=== PATIENT | female | born 1985 | race Caucasian/White ===

== ENCOUNTER 2018-07-07 13:49 | Inpatient (IN) | payer OTHER ==
[2018-07-07 15:31] VITALS: BMI 25.9
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
[2018-07-07] MEDS ORDERED: P-EPHED 60MG/TRIPROLIDI 2.5MG TABLET PO PRN (17:00)
[2018-07-07] MEDS ORDERED: MAGNESIUM CITRATE 300 ML BOTTLE PO PRN (17:00)
[2018-07-07] MEDS ORDERED: MENTHOL/PHENOL 1 EACH UD MM PRN (17:00)
[2018-07-07] MEDS ORDERED: MAGNESIUM HYDROX 2400MG/30ML ORAL SUSPENSION 30 ML CUP PO PRN (17:00)
[2018-07-07] MEDS ORDERED: NICOTINE POLACRILEX 2 MG GUM BC PRN (17:00)
[2018-07-07] MEDS ORDERED: LOPERAMIDE HCL 2 MG CAPSULE PO PRN (17:00)
[2018-07-07] MEDS ORDERED: guaiFENesin/D-METHORPHAN HB 10 ML UNIT-DOSE CUPS PO PRN (17:00)
[2018-07-07] MEDS ORDERED: ACETAMINOPHEN 325 MG TABLET (FP) PO PRN (17:00)
[2018-07-07] MEDS ORDERED: IBUPROFEN 400 MG TABLET (FP) PO PRN (17:00)
[2018-07-07] MEDS ORDERED: MAG HYDROX/AL HYDROX/SIMETH 30 ML UNIT-DOSE CUP PO PRN (17:00)
[2018-07-07] MEDS ORDERED: diazePAM 5 MG TABLET PO ONE (18:30)
[2018-07-07] MEDS ORDERED: METHADONE HCL 10 MG TABLET (FOR DETOX USE ONLY) PO ONE ×2 (18:30→23:00)
[2018-07-07] MEDS ORDERED: BACITRACIN 15 GM TUBE TOPICAL OINTMENT TP SCH (22:00)
[2018-07-07] MEDS ORDERED: MELATONIN 5 MG TABLETS PO PRN (22:00)
[2018-07-07] MEDS: diazePAM 5 MG TABLET PO SCH (22:49)
[2018-07-07] MEDS: cloNIDine HCL 0.1 MG TABLET PO SCH (22:49)
[2018-07-07] MEDS: GABAPENTIN 100 MG CAPSULE (FP) PO SCH (22:49)
[2018-07-07] MEDS: CYCLOBENZAPRINE HCL 10 MG TABLET (FP) PO PRN (22:52)
[2018-07-07] MEDS: THIAMINE HCL 100 MG TABLET (FP) PO SCH (22:52)
[2018-07-07] MEDS: ONDANSETRON *ODT* 4 MG TABLET SL PRN (22:59)
[2018-07-08] MEDS: BACITRACIN 0.9 GM PACKET TP SCH ×3 (00:08→22:24)
[2018-07-08] MEDS: diazePAM 5 MG TABLET PO SCH ×3 (05:25→22:25)
[2018-07-08] MEDS: GABAPENTIN 100 MG CAPSULE (FP) PO SCH ×3 (05:25→22:25)
[2018-07-08] MEDS: CYCLOBENZAPRINE HCL 10 MG TABLET (FP) PO PRN ×2 (05:26→22:27)
[2018-07-08] MEDS: ONDANSETRON *ODT* 4 MG TABLET SL PRN (05:26)
[2018-07-08] MEDS ORDERED: METHADONE HCL 10 MG TABLET (FOR DETOX USE ONLY) PO SCH (10:00)
[2018-07-08] MEDS: PRENATAL VITAMINS W/ FOLIC ACID TABLET (FP) PO SCH (10:33)
[2018-07-08] MEDS: diazePAM 5 MG TABLET PO PRN (10:33)
[2018-07-08] MEDS: cloNIDine HCL 0.1 MG TABLET PO SCH ×2 (10:33→22:25)
[2018-07-08] MEDS: NICOTINE 14 MG/24 HOURS TOPICAL PATCH TD SCH (10:33)
[2018-07-08 11:14] LABS: HEMATOCRIT 37.2 % (32.4-45.2); HEMOGLOBIN 12.2 GM/dL (10.7-15.3); MCH 24.9 pg (25.7-33.7); MCHC 32.9 g/dl (32.0-36.0); MEAN CELL VOLUME 75.7 fl (80-96); MEAN PLT VOLUME 8.4 fl (7.5-11.1); PLATELET COUNT 293 K/MM3 (134-434); RBC 4.92 M/mm3 (3.60-5.2); RDW 14.4 % (11.6-15.6)
[2018-07-08 12:31] LABS: ALBUMIN 3.5 g/dl (3.4-5.0); ALK PHOS 77 U/L (45-117); ANION GAP 9 MMOL/L (8-16); BILIRUBIN,TOTAL 0.3 mg/dL (0.2-1); BLOOD UREA NITROGEN 4 mg/dL (7-18); CALCIUM 9.1 mg/dL (8.5-10.1); CHLORIDE 100 mmol/L (98-107); CO2 29 mmol/L (21-32); CREATININE 0.7 mg/dL (0.55-1.3); GLUCOSE,RANDOM 100 mg/dL (74-106); POTASSIUM 3.3 mmol/L (3.5-5.1); SGOT/AST 22 U/L (15-37); SGPT/ALT 17 U/L (13-61); SODIUM 138 mmol/L (136-145); TOT PROT 8.3 g/dl (6.4-8.2)
--- NOTE | 2018-07-08 12:42 | EKG ---
Test Reason : Blood Pressure : / mmHG Vent. Rate : 070 BPM Atrial Rate : 070 BPM P-R Int : 190 ms QRS Dur : 082 ms QT Int : 390 ms P-R-T Axes : 029 062 032 degrees QTc Int : 421 ms NORMAL SINUS RHYTHM NORMAL ECG NO PREVIOUS ECGS AVAILABLE Confirmed by BRIGITTE MARSHALL, DAREK ([id number]) on 07/08/2018 12:42:46 PM Referred By: Confirmed By:DAREK BRIGGS MD
--- NOTE | 2018-07-08 13:18 | CONSULT ---
[facility] Psychiatric Consult - Data Date of interview: 07/08/18 Admission source: [facility] Identifying data: First admission to [facility] for this 32 y/o female self-referred for detoxification (opioid, xanax, cocaine, alcohol). Examined on . Patient is single, no children, unemployed and supported by friends/ relatives. Substance Abuse History: Confirmed by patient in this session. Details in current [facility] report as follows : Smoking history: Current every day smoker. Have you smoked in the past 12 months: Yes. Aproximately how many cigarettes per day: 3. Hx Chewing Tobacco Use: No. Initiated information on smoking cessation: Yes. 'Breaking Loose' booklet given: 07/07/18. - Substance & Tx. History. Hx Alcohol Use: Yes. Hx Substance Use: Yes. Substance Use Type: Alcohol, Cocaine, Heroin, Tranquilizers. Hx Substance Use Treatment: Yes (Last detox [facility] four weeks ago.). - Substances Abused. Alcohol. Route: Oral. Frequency: 3-6 times per week. Amount used: 1/2 liquor. Age of first use: 15. Date of Last Use: 07/05/18. Crack. Route: Smoking. Frequency: Daily. Amount used: 5 bags. Age of first use: 32. Date of Last Use: 07/07/18. Heroin. Route: Injection. Frequency: Daily. Amount used: 2 bundles. Age of first use: 28. Date of Last Use: 07/06/18. Alprazolam (Xanax). Route: Oral. Frequency: Daily. Amount used: 4 mg. Age of first use: 22. Date of Last Use: 07/07/18 Medical History: Hypothyroidism, herniated discs and bronchial asthma. Psychiatric History: Patient admits to a history of " a couple of " psychiatric hospitalizations at unnamed facilities in [facility]. Reportedly diagnosed with MDD, Bipolar Disorder, Anxiety Disorder and Borderline Personality Disorder. Ms Quach indicates that she used to be prescribed gabapentin, seroquel, buspar and clonidine. No OPD care. " I have not seen a psychiatrist since age 28 ". Has not taken psychotropic medications for past six months. Patient reports a history of three suicide attempts (wrist-cutting x 2 and one overdose with pills). Last attempt occurred four years ago. Physical/Sexual Abuse/Trauma History: Patient denies. Additional Comment: Urine Drug Screen Results: CARLITO-Cocaine, BZO-Benzodiazepines , MTD-Methadone, FEN-Fentanyl. Noted. Mental Status Exam - Mental Status Exam Alert and Oriented to: Time, Place, Person Cognitive Function: Good Patient Appearance: Well Groomed Mood: Nervous, Withdrawn, Anxious Affect: Mood Congruent, Constricted Patient Behavior: Fatigued, Appropriate, Cooperative Speech Pattern: Clear, Appropriate Voice Loudness: Normal Thought Process: Intact, Goal Oriented Thought Disorder: Not Present Hallucinations: Denies Suicidal Ideation: Denies Homicidal Ideation: Denies Insight/Judgement: Poor Sleep: Poorly, Difficulty falling asleep Appetite: Good Muscle strength/Tone: Normal Gait/Station: Normal Psychiatric Findings - Problem List ([place] 1, 2,3) (1) Alcohol dependence with withdrawal Current Visit: Yes Status: Acute Qualifiers: Complication of substance-induced condition: uncomplicated Qualified Code(s ): F10.230 - Alcohol dependence with withdrawal, uncomplicated (2) Sedative, hypnotic or anxiolytic dependence with withdrawal, uncomplicated Current Visit: Yes Status: Acute (3) Opioid dependence with withdrawal Current Visit: Yes Status: Acute (4) Cocaine dependence Current Visit: Yes Status: Chronic (5) Substance induced mood disorder Current Visit: Yes Status: Chronic (6) Insomnia Current Visit: Yes Status: Chronic (7) Non-compliance Current Visit: Yes Status: Acute - Initial Treatment Plan Initial Treatment Plan: Interviewed in the presence of medical students (with patient's verbal consent). Psychoeducation. Sleep hygiene. Detoxification. Motivational support. AA/NA meetings. Relapse prevention discussed with the patient. Ms Quach wants to resume seroquel to address insomnia. Seroquel 100 mg po hs. " It worked well for me in the past ". Side effects/benefits discussed. Consent (verbal) granted to MD. Parker.
--- NOTE | 2018-07-08 18:21 | PN ---
S CIWA - CIWA Score Nausea/Vomitin Muscle Tremors: 3 Anxiety: 5 Agitation: 0-Normal Activity Paroxysmal Sweats: 3 Orientation: 0-Oriented Tacttile Disturbances: 2-Mild Itch/Numbness/Burn Auditory Disturbances: 0-None Visual Disturbances: 1-Very Mild Sensitivity Headache: 3-Moderate CIWA-Ar Total Score: 20 BHS COWS - Scale Resting Pulse: 1= [place] 81-100 Sweatin= Chills/Flushing Restless Observation: 0= Sits Still Pupil Size: 0= Normal to Room Light Bone or Joint Aches: 2= Severe Diffuse Aches Runny Nose/ Eye Tearin= None GI Upset > 30mins: 2= Nausea/Diarrhea Tremor Observation of Outstretched Hands: 2= Slight Tremor Visible Yawning Observation: 1= 1-2x During Session Anxiety or Irritability: 4=Extreme Anxiety Goose Flesh Skin: 0=Smooth Skin COWS Score: 13 BHS Progress Note (SOAP) Subjective: Nausea, Stomach Cramping, Tremors, H/A, Sweating, Body Aches. Objective: PATIENT A & O X 3, OBSERVED AMBULATING ON UNIT. IN NO ACUTE DISTRESS. 07/08/18 18:19 Vital Signs Temperature 99.3 F 07/08/18 17:51 Pulse Rate 80 07/08/18 17:51 Respiratory Rate 18 07/08/18 17:51 Blood Pressure 106/70 07/08/18 17:51 O2 Sat by Pulse Oximetry (%) Laboratory Tests 07/08/18 07/08/18 07/08/18 07:00 07:00 07:00 WBC 6.0 RBC 4.92 Hgb 12.2 Hct 37.2 MCV 75.7 L MCH 24.9 L MCHC 32.9 RDW 14.4 Plt Count 293 MPV 8.4 Sodium 138 Potassium 3.3 L Chloride 100 Carbon Dioxide 29 Anion Gap 9 BUN 4 L Creatinine 0.7 Creat Clearance w eGFR > 60 Random Glucose 100 Calcium 9.1 Total Bilirubin 0.3 AST 22 ALT 17 Alkaline Phosphatase 77 Total Protein 8.3 H Albumin 3.5 RPR Titer Nonreactive LABS NOTED. Assessment: 07/08/18 18:20 WITHDRAWAL SYMPTOMS. Plan: CONTINUED ETOX. INCREASE DAILY PO FLUID INTAKE. K-DUR, 40 MEQ POP X 1 NOW, THEN 20 MEQ PO BID STARTING TOMORROW.
[2018-07-08] MEDS ORDERED: POTASSIUM CHLORIDE TABS 20 MEQ TABLET.ER (FP) PO ONE (19:00)
[2018-07-08 19:09] LABS: URINE APPEARANCE TURBID; URINE BILIRUBIN NEGATIVE (<2.0 mg/dL); URINE COLOR AMBER; URINE GLUCOSE (UA) NEGATIVE (NEGATIVE); URINE KETONE NEGATIVE (NEGATIVE); URINE LEUK ESTERASE 2+ (NEGATIVE); URINE NITRITE NEGATIVE (NEGATIVE); URINE PROTEIN 3+ (NEGATIVE)
[2018-07-08 19:15] LABS: EPI CELLS RARE /HPF (FEW); URINE BACTERIA RARE /hpf (NONE SEEN); URINE MUCUS MANY
[2018-07-08] MEDS: THIAMINE HCL 100 MG TABLET (FP) PO SCH (22:24)
[2018-07-08] MEDS: QUEtiapine FUMARATE 50 MG TABLET PO SCH (22:25)
[2018-07-09] MEDS: GABAPENTIN 100 MG CAPSULE (FP) PO SCH ×3 (06:59→21:15)
[2018-07-09] MEDS: diazePAM 5 MG TABLET PO PRN ×3 (08:54→21:15)
[2018-07-09] MEDS: METHADONE HCL 5 MG TABLET (FOR DETOX USE ONLY) PO SCH (10:31)
[2018-07-09] MEDS: NICOTINE 14 MG/24 HOURS TOPICAL PATCH TD SCH (10:32)
[2018-07-09] MEDS: PRENATAL VITAMINS W/ FOLIC ACID TABLET (FP) PO SCH (10:32)
[2018-07-09] MEDS: diazePAM 5 MG TABLET PO SCH ×2 (10:32→22:26)
[2018-07-09] MEDS: BACITRACIN 0.9 GM PACKET TP SCH ×2 (10:32→21:15)
[2018-07-09] MEDS: POTASSIUM CHLORIDE TABS 20 MEQ TABLET.ER (FP) PO SCH ×2 (10:32→17:24)
[2018-07-09] MEDS: cloNIDine HCL 0.1 MG TABLET PO SCH ×2 (11:14→22:25)
--- NOTE | 2018-07-09 16:07 | PN ---
S CIWA - CIWA Score Nausea/Vomitin Muscle Tremors: 3 Anxiety: 5 Agitation: 3 Paroxysmal Sweats: 3 Orientation: 0-Oriented Tacttile Disturbances: 0-None Auditory Disturbances: 0-None Visual Disturbances: 0-None Headache: 2-Mild CIWA-Ar Total Score: 18 BHS COWS - Scale Resting Pulse: 2= [place] 101-120 Sweatin= Chills/Flushing Restless Observation: 1= Difficult to Sit Still Pupil Size: 0= Normal to Room Light Bone or Joint Aches: 2= Severe Diffuse Aches Runny Nose/ Eye Tearin= None GI Upset > 30mins: 2= Nausea/Diarrhea Tremor Observation of Outstretched Hands: 2= Slight Tremor Visible Yawning Observation: 1= 1-2x During Session Anxiety or Irritability: 2=Irritable/Anxious Goose Flesh Skin: 0=Smooth Skin COWS Score: 13 S Progress Note (SOAP) Subjective: Nausea, H/A, Stomach Cramping, Tremors, Sweating, Body Aches. Objective: PATIENT A & O X 3, OBSERVED AMBULATING ON UNIT. IN NO ACUTE DISTRESS. 07/09/18 16:03 Vital Signs Temperature 96.1 F L 07/09/18 14:53 Pulse Rate 59 L 07/09/18 14:53 Respiratory Rate 18 07/09/18 14:53 Blood Pressure 97/65 07/09/18 14:53 O2 Sat by Pulse Oximetry (%) Laboratory Tests 07/08/18 07/08/18 07/08/18 00:01 07:00 07:00 WBC 6.0 RBC 4.92 Hgb 12.2 Hct 37.2 MCV 75.7 L MCH 24.9 L MCHC 32.9 RDW 14.4 Plt Count 293 MPV 8.4 Sodium 138 Potassium 3.3 L Chloride 100 Carbon Dioxide 29 Anion Gap 9 BUN 4 L Creatinine 0.7 Creat Clearance w eGFR > 60 Random Glucose 100 Calcium 9.1 Total Bilirubin 0.3 AST 22 ALT 17 Alkaline Phosphatase 77 Total Protein 8.3 H Albumin 3.5 Urine Color Alejandra Urine Appearance Turbid Urine pH 5.0 Ur Specific [place] 1.024 Urine Protein 3+ H Urine Glucose (UA) Negative Urine Ketones Negative Urine Blood 1+ H Urine Nitrite Negative Urine Bilirubin Negative Urine Urobilinogen 2.0 H Ur Leukocyte Esterase 2+ H Urine WBC (Auto) 757 Urine RBC (Auto) 15 Ur Epithelial Cells Rare Urine Bacteria Rare Urine Mucus Many RPR Titer 07/08/18 07:00 WBC RBC Hgb Hct MCV MCH MCHC RDW Plt Count MPV Sodium Potassium Chloride Carbon Dioxide Anion Gap BUN Creatinine Creat Clearance w eGFR Random Glucose Calcium Total Bilirubin AST ALT Alkaline Phosphatase Total Protein Albumin Urine Color Urine Appearance Urine pH Ur Specific [place] Urine Protein Urine Glucose (UA) Urine Ketones Urine Blood Urine Nitrite Urine Bilirubin Urine Urobilinogen Ur Leukocyte Esterase Urine WBC (Auto) Urine RBC (Auto) Ur Epithelial Cells Urine Bacteria Urine Mucus RPR Titer Nonreactive LABS NOTED. PATIENT DENIES ANY UNUSUAL URINARY COMPLAINTS (BURNING, PAIN, FREQUENCY, URGENCY , HESITANCY). HOWEVER, PATIENT REPORTS HISTORY OF UTI'S. 07/09/18 16:04 Assessment: 07/09/18 16:05 WITHDRAWAL SYMPTOMS. HYPOKALEMIA. 07/09/18 16:06 Plan: CONTINUE DETOX. INCREASE DAILY PO FLUID INTAKE. REPEAT UA FOR ADMISSION UA ABNORMALITIES. CONTINUE K-DUR. PRN FLEXERIL PO FOR BODY ACHES. CLONIDINE, 0.1 MG PO BID (PREVIOUSLY ORDERED) FOR WITHDRAWAL SYMPTOMS.
[2018-07-09] MEDS: CYCLOBENZAPRINE HCL 10 MG TABLET (FP) PO PRN (17:33)
[2018-07-09 20:09] LABS: URINE APPEARANCE TURBID; URINE BILIRUBIN NEGATIVE (<2.0 mg/dL); URINE COLOR AMBER; URINE GLUCOSE (UA) NEGATIVE (NEGATIVE); URINE KETONE NEGATIVE (NEGATIVE); URINE LEUK ESTERASE 2+ (NEGATIVE); URINE NITRITE NEGATIVE (NEGATIVE); URINE PROTEIN 2+ (NEGATIVE); URINE UROBILINOGEN NEGATIVE mg/dL (0.2-1.0)
[2018-07-09 20:18] LABS: EPI CELLS RARE /HPF (FEW); URINE MUCUS FEW
[2018-07-09] MEDS: THIAMINE HCL 100 MG TABLET (FP) PO SCH (21:15)
[2018-07-09] MEDS: QUEtiapine FUMARATE 50 MG TABLET PO SCH (21:15)
[2018-07-10] MEDS: CYCLOBENZAPRINE HCL 10 MG TABLET (FP) PO PRN (01:20)
[2018-07-10] MEDS: diazePAM 5 MG TABLET PO PRN ×4 (01:21→17:10)
[2018-07-10] MEDS: GABAPENTIN 100 MG CAPSULE (FP) PO SCH (05:51)
--- NOTE | 2018-07-10 09:36 | PN ---
Psychiatric Progress Note Vital Signs: Vital Signs Period Temp Pulse Resp BP Sys/[place] Pulse Ox Last 24 Hr 96.1 F-97.3 F 59-104 16-18 96-104/65-73 Date of Session: 07/10/18 Chief Complaint:: "I have anxiety and I can't sleep" HPI: Patient admitted to for detoxification from opioid, xanax, cocaine, and alcohol dependence. ROS: Hypothyroidism, herniated discs and bronchial asthma Current Medications: Active Medications Generic Name Dose Route Start Last Admin Trade Name Freq PRN Reason Stop Dose Admin Acetaminophen 650 mg 07/07/18 17:00 Tylenol - PO Q4H PRN FEVER Al Hydroxide/Mg Hydroxide 30 ml 07/07/18 17:00 Mylanta Oral Suspension - PO Q6H PRN DYSPEPSIA Bacitracin 0.9 gm 07/07/18 23:00 07/09/18 21:15 Bacitracin - TP 0.9 gm BID JANINE Administration Clonidine 0.1 mg 07/07/18 22:00 07/09/18 22:25 Catapres - PO Not Given BID JANINE Cyclobenzaprine HCl 10 mg 07/07/18 17:14 07/10/18 01:20 Flexeril - PO 10 mg TID PRN Administration MUSCLE SPASMS Diazepam 5 mg 07/09/18 10:00 07/09/18 22:26 Valium - PO 07/10/18 22:01 Not Given BID JANINE Diazepam 5 mg 07/11/18 10:00 Valium - PO 07/11/18 10:01 DAILY JANINE Diazepam 10 mg 07/07/18 17:00 07/10/18 05:54 Valium - PO 07/10/18 17:12 10 mg Q4H PRN Administration WITHDRAWAL(CONT SUBST) Eucalyptus/Menthol/Phenol/Sorbitol 1 each 07/07/18 17:00 Cepastat Lozenge - MM Q4H PRN SORE THROAT Gabapentin 100 mg 07/07/18 22:00 07/10/18 05:51 Neurontin - PO 100 mg TID JANINE Administration Guaifenesin 10 ml 07/07/18 17:00 Robitussin Dm - PO Q6H PRN COUGH Ibuprofen 400 mg 07/07/18 17:00 Motrin - PO Q6H PRN PAIN LEVEL 4-6 Loperamide HCl 4 mg 07/07/18 17:00 Imodium - PO Q6H PRN DIARRHEA Magnesium Citrate 300 ml 07/07/18 17:00 Citroma - PO Q48H PRN CONSTIPATION Magnesium Hydroxide 30 ml 07/07/18 17:00 Milk Of Magnesia - PO DAILY PRN CONSTIPATION Melatonin 5 mg 07/07/18 22:00 Melatonin PO HS PRN INSOMNIA Methadone HCl 10 mg 07/11/18 10:00 Dolophine - PO 07/11/18 10:01 DAILY JANINE Methadone HCl 15 mg 07/09/18 10:00 07/09/18 10:31 Dolophine - PO 07/10/18 10:01 15 mg DAILY JANINE Administration Methadone HCl 5 mg 07/12/18 06:00 Dolophine - PO 07/12/18 06:01 DAILY@0600 JANINE Nicotine 14 mg 07/08/18 10:00 07/09/18 10:32 Nicoderm Patch - TD 14 mg DAILY JANINE Administration Nicotine Polacrilex 2 mg 07/07/18 17:00 Nicorette Gum - BC Q2H PRN NICOTINE REPLACEMENT RX Potassium Chloride 20 meq 07/09/18 10:00 07/09/18 17:24 K-Dur - PO 20 meq BID@1000,1800 JANINE Administration Multivit/Folic Acid/Iron 1 tab 07/08/18 10:00 07/09/18 10:32 Vitamins (Sjr) - PO 1 tab DAILY JANINE Administration Pseudoephedrine/Triprolidine 1 combo 07/07/18 17:00 Actifed - PO TID PRN NASAL CONGESTION Quetiapine Fumarate 50 mg 07/08/18 22:00 07/09/18 21:15 Seroquel - PO 50 mg HS JANINE Administration Thiamine HCl 100 mg 07/07/18 22:00 07/09/18 21:15 Vitamin B1 - PO 100 mg HS JANINE Administration Medication(s) Change(s): Yes. Will increase seroquel 50mg to 100mg HS + Increase Gabapentin 100mg TID to 300 TID. Current Side Effect: No Lab tests ordered: No Lab tests reviewed: Yes Provider note:: Patient complaining of worsening anxiety and insomnia. Dr. Pozo note read and appreciated.States she used to be prescribed gabapentin 600mg TID but is currently receiving gabapentin 100mg TID which she states is not effective. Patient denies current outpatient psychiatric care. States it has been some time since she last took gabapentin 600mg TID. Patient also c/o insomnia. Patient accepted seroquel 50mg last night with unfavorable effects. Will increase seroquel 50mg dose to 100mg and gabapentin to be increased to 300mg TID. Psychoeducation and sleep hygiene provided. Verbal consent given. Total face to face time:: 25 Mental Status Exam - Mental Status Exam Alert and Oriented to: Time, Place, Person Cognitive Function: Good Patient Appearance: Well Groomed Mood: Anxious Affect: Mood Congruent Patient Behavior: Cooperative Speech Pattern: Appropriate Voice Loudness: Normal Thought Process: Intact, Goal Oriented Thought Disorder: Not Present Hallucinations: Denies Suicidal Ideation: Denies Homicidal Ideation: Denies Insight/Judgement: Poor Sleep: Poorly Appetite: Fair Muscle strength/Tone: Normal Gait/Station: Normal Psychiatric Treatment Plan - Problem List (1) Alcohol dependence with withdrawal Qualifiers: Comment: . (2) Substance-induced sleep disorder Comment: . (3) Opioid dependence with withdrawal Comment: . (4) Sedative, hypnotic or anxiolytic dependence with withdrawal, uncomplicated Comment: . (6) Substance induced mood disorder Comment: .
[2018-07-10] MEDS ORDERED: BACLOFEN 10 MG TABLET (FP) PO ONE (09:50)
--- NOTE | 2018-07-10 09:50 | PN ---
[facility] CIWA - CIWA Score Nausea/Vomitin-Mild Nausea/No Vomiting Muscle Tremors: 4-Moderate,w/Arms Extend Anxiety: 3 Agitation: 4-Moderately Restless Paroxysmal Sweats: 1-Minimal Palms Moist Orientation: 0-Oriented Tacttile Disturbances: 0-None Auditory Disturbances: 0-None Visual Disturbances: 0-None Headache: 1-Very Mild CIWA-Ar Total Score: 14 BHS COWS - Scale Resting Pulse: 0= [place] 80 or Below Sweatin= Chills/Flushing Restless Observation: 0= Sits Still Pupil Size: 0= Normal to Room Light Bone or Joint Aches: 1= Mild Discomfort Runny Nose/ Eye Tearin= Nasal Congestion GI Upset > 30mins: 2= Nausea/Diarrhea Tremor Observation of Outstretched Hands: 2= Slight Tremor Visible Yawning Observation: 1= 1-2x During Session Anxiety or Irritability: 2=Irritable/Anxious Goose Flesh Skin: 0=Smooth Skin COWS Score: 10 S Progress Note (SOAP) Subjective: body aches muscle cramping stiff joints tremor sweating Objective: 07/10/18 09:51 Vital Signs Temperature 95.9 F L 07/10/18 09:50 Pulse Rate 64 07/10/18 09:50 Respiratory Rate 18 07/10/18 09:50 Blood Pressure 104/71 07/10/18 09:50 O2 Sat by Pulse Oximetry (%) Laboratory Last Values WBC 6.0 K/mm3 (4.0-10.0) 07/08/18 07:00 RBC 4.92 M/mm3 (3.60-5.2) 07/08/18 07:00 Hgb 12.2 GM/dL (10.7-15.3) 07/08/18 07:00 Hct 37.2 % (32.4-45.2) 07/08/18 07:00 MCV 75.7 fl (80-96) L 07/08/18 07:00 MCH 24.9 pg (25.7-33.7) L 07/08/18 07:00 MCHC 32.9 g/dl (32.0-36.0) 07/08/18 07:00 RDW 14.4 % (11.6-15.6) 07/08/18 07:00 Plt Count 293 K/MM3 (134-434) 07/08/18 07:00 MPV 8.4 fl (7.5-11.1) 07/08/18 07:00 Sodium 138 mmol/L (136-145) 07/08/18 07:00 Potassium 3.3 mmol/L (3.5-5.1) L 07/08/18 07:00 Chloride 100 mmol/L (98-107) 07/08/18 07:00 Carbon Dioxide 29 mmol/L (21-32) 07/08/18 07:00 Anion Gap 9 MMOL/L (8-16) 07/08/18 07:00 BUN 4 mg/dL (7-18) L 07/08/18 07:00 Creatinine 0.7 mg/dL (0.55-1.3) 07/08/18 07:00 Creat Clearance w eGFR > 60 (>60) 07/08/18 07:00 Random Glucose 100 mg/dL (74-106) 07/08/18 07:00 Calcium 9.1 mg/dL (8.5-10.1) 07/08/18 07:00 Total Bilirubin 0.3 mg/dL (0.2-1) 07/08/18 07:00 AST 22 U/L (15-37) 07/08/18 07:00 ALT 17 U/L (13-61) 07/08/18 07:00 Alkaline Phosphatase 77 U/L (45-117) 07/08/18 07:00 Total Protein 8.3 g/dl (6.4-8.2) H 07/08/18 07:00 Albumin 3.5 g/dl (3.4-5.0) 07/08/18 07:00 Urine Color Alejandra 07/09/18 11:40 Urine Appearance Turbid 07/09/18 11:40 Urine pH 7.0 (5.0-8.0) D 07/09/18 11:40 Ur Specific [place] 1.006 (1.010-1.035) L 07/09/18 11:40 Urine Protein 2+ (NEGATIVE) H 07/09/18 11:40 Urine Glucose (UA) Negative (NEGATIVE) 07/09/18 11:40 Urine Ketones Negative (NEGATIVE) 07/09/18 11:40 Urine Blood 1+ (NEGATIVE) H 07/09/18 11:40 Urine Nitrite Negative (NEGATIVE) 07/09/18 11:40 Urine Bilirubin Negative (<2.0 mg/dL) 07/09/18 11:40 Urine Urobilinogen Negative mg/dL (0.2-1.0) 07/09/18 11:40 Ur Leukocyte Esterase 2+ (NEGATIVE) H 07/09/18 11:40 Urine WBC (Auto) 170 /hpf (3-5) 07/09/18 11:40 Urine RBC (Auto) 22 /hpf (0-3) 07/09/18 11:40 Ur Epithelial Cells Rare /HPF (FEW) 07/09/18 11:40 Urine Bacteria Rare /hpf (NONE SEEN) 07/08/18 00:01 Urine Mucus Few 07/09/18 11:40 RPR Titer Nonreactive (NONREACTIVE) 07/08/18 07:00 lab noted uti low K+ Assessment: 07/10/18 09:54 withdrawal sx uti hypokalemia Plan: continue detox bactrim ds bid continue potassium supplement K+ repeat
[2018-07-10] MEDS: BACITRACIN 0.9 GM PACKET TP SCH ×2 (10:22→22:29)
[2018-07-10] MEDS: PRENATAL VITAMINS W/ FOLIC ACID TABLET (FP) PO SCH (10:22)
[2018-07-10] MEDS: METHADONE HCL 5 MG TABLET (FOR DETOX USE ONLY) PO SCH (10:23)
[2018-07-10] MEDS: diazePAM 5 MG TABLET PO SCH ×2 (10:23→22:30)
[2018-07-10] MEDS: cloNIDine HCL 0.1 MG TABLET PO SCH ×2 (10:24→22:32)
[2018-07-10] MEDS: POTASSIUM CHLORIDE TABS 20 MEQ TABLET.ER (FP) PO SCH ×2 (10:25→17:24)
[2018-07-10] MEDS: NICOTINE 14 MG/24 HOURS TOPICAL PATCH TD SCH (10:25)
[2018-07-10] MEDS: SULFAMETHOXAZOLE/TRIMETHOPRIM 800MG/160MG D.S. TABLET PO SCH ×2 (11:25→22:30)
[2018-07-10] MEDS: GABAPENTIN 300 MG CAPSULE (FP) PO SCH ×2 (13:11→22:30)
[2018-07-10] MEDS: QUEtiapine FUMARATE 100 MG TABLET (FP) PO SCH (22:30)
[2018-07-10] MEDS: THIAMINE HCL 100 MG TABLET (FP) PO SCH (22:30)
[2018-07-11] MEDS: GABAPENTIN 300 MG CAPSULE (FP) PO SCH ×3 (05:49→22:19)
[2018-07-11] MEDS ORDERED: METHADONE HCL 10 MG TABLET (FOR DETOX USE ONLY) PO SCH (10:00)
[2018-07-11] MEDS ORDERED: diazePAM 5 MG TABLET PO SCH (10:00)
[2018-07-11] MEDS: PRENATAL VITAMINS W/ FOLIC ACID TABLET (FP) PO SCH (10:19)
[2018-07-11] MEDS: cloNIDine HCL 0.1 MG TABLET PO SCH ×2 (10:19→22:20)
[2018-07-11] MEDS: POTASSIUM CHLORIDE TABS 20 MEQ TABLET.ER (FP) PO SCH ×2 (10:19→17:19)
[2018-07-11] MEDS: BACITRACIN 0.9 GM PACKET TP SCH ×2 (10:19→22:18)
[2018-07-11] MEDS: SULFAMETHOXAZOLE/TRIMETHOPRIM 800MG/160MG D.S. TABLET PO SCH ×2 (10:19→22:19)
[2018-07-11] MEDS: NICOTINE 14 MG/24 HOURS TOPICAL PATCH TD SCH (10:20)
--- NOTE | 2018-07-11 10:58 | PN ---
S CIWA - CIWA Score Nausea/Vomitin-No Nausea/No Vomiting Muscle Tremors: 2 Anxiety: 2 Agitation: 1-Slight > Activity Paroxysmal Sweats: 1-Minimal Palms Moist Orientation: 0-Oriented Tacttile Disturbances: 0-None Auditory Disturbances: 0-None Visual Disturbances: 0-None Headache: 0-None Present CIWA-Ar Total Score: 6 BHS COWS - Scale Resting Pulse: 0= [place] 80 or Below Sweatin= Chills/Flushing Restless Observation: 0= Sits Still Pupil Size: 0= Normal to Room Light Bone or Joint Aches: 1= Mild Discomfort Runny Nose/ Eye Tearin= None GI Upset > 30mins: 0= None Tremor Observation of Outstretched Hands: 1= Tremor [place], Not Seen Yawning Observation: 0= None Anxiety or Irritability: 1=Feels Anxious/Irritable Goose Flesh Skin: 0=Smooth Skin COWS Score: 4 S Progress Note (SOAP) Subjective: neck muscle stiffness from IV heroin right neck report baclofen works for her feeling better mild tremor less body aches Objective: 07/11/18 10:58 Vital Signs Temperature 98.1 F 07/11/18 09:17 Pulse Rate 97 H 07/11/18 09:17 Respiratory Rate 18 07/11/18 09:17 Blood Pressure 107/76 07/11/18 09:17 O2 Sat by Pulse Oximetry (%) Laboratory Last Values WBC 6.0 K/mm3 (4.0-10.0) 07/08/18 07:00 RBC 4.92 M/mm3 (3.60-5.2) 07/08/18 07:00 Hgb 12.2 GM/dL (10.7-15.3) 07/08/18 07:00 Hct 37.2 % (32.4-45.2) 07/08/18 07:00 MCV 75.7 fl (80-96) L 07/08/18 07:00 MCH 24.9 pg (25.7-33.7) L 07/08/18 07:00 MCHC 32.9 g/dl (32.0-36.0) 07/08/18 07:00 RDW 14.4 % (11.6-15.6) 07/08/18 07:00 Plt Count 293 K/MM3 (134-434) 07/08/18 07:00 MPV 8.4 fl (7.5-11.1) 07/08/18 07:00 Sodium 138 mmol/L (136-145) 07/08/18 07:00 Potassium 3.3 mmol/L (3.5-5.1) L 07/08/18 07:00 Chloride 100 mmol/L (98-107) 07/08/18 07:00 Carbon Dioxide 29 mmol/L (21-32) 07/08/18 07:00 Anion Gap 9 MMOL/L (8-16) 07/08/18 07:00 BUN 4 mg/dL (7-18) L 07/08/18 07:00 Creatinine 0.7 mg/dL (0.55-1.3) 07/08/18 07:00 Creat Clearance w eGFR > 60 (>60) 07/08/18 07:00 Random Glucose 100 mg/dL (74-106) 07/08/18 07:00 Calcium 9.1 mg/dL (8.5-10.1) 07/08/18 07:00 Total Bilirubin 0.3 mg/dL (0.2-1) 07/08/18 07:00 AST 22 U/L (15-37) 07/08/18 07:00 ALT 17 U/L (13-61) 07/08/18 07:00 Alkaline Phosphatase 77 U/L (45-117) 07/08/18 07:00 Total Protein 8.3 g/dl (6.4-8.2) H 07/08/18 07:00 Albumin 3.5 g/dl (3.4-5.0) 07/08/18 07:00 Urine Color Alejandra 07/09/18 11:40 Urine Appearance Turbid 07/09/18 11:40 Urine pH 7.0 (5.0-8.0) D 07/09/18 11:40 Ur Specific [place] 1.006 (1.010-1.035) L 07/09/18 11:40 Urine Protein 2+ (NEGATIVE) H 07/09/18 11:40 Urine Glucose (UA) Negative (NEGATIVE) 07/09/18 11:40 Urine Ketones Negative (NEGATIVE) 07/09/18 11:40 Urine Blood 1+ (NEGATIVE) H 07/09/18 11:40 Urine Nitrite Negative (NEGATIVE) 07/09/18 11:40 Urine Bilirubin Negative (<2.0 mg/dL) 07/09/18 11:40 Urine Urobilinogen Negative mg/dL (0.2-1.0) 07/09/18 11:40 Ur Leukocyte Esterase 2+ (NEGATIVE) H 07/09/18 11:40 Urine WBC (Auto) 170 /hpf (3-5) 07/09/18 11:40 Urine RBC (Auto) 22 /hpf (0-3) 07/09/18 11:40 Ur Epithelial Cells Rare /HPF (FEW) 07/09/18 11:40 Urine Bacteria Rare /hpf (NONE SEEN) 07/08/18 00:01 Urine Mucus Few 07/09/18 11:40 RPR Titer Nonreactive (NONREACTIVE) 07/08/18 07:00 lab noted low K+ uti encourage the patient to cloth picker her uti and K+ supplement from preferred pharmacy as well as narcan kit 07/11/18 11:06 Assessment: 07/11/18 11:07 mild withdrawal sx Plan: continue detox
[2018-07-11] MEDS ORDERED: BACLOFEN 10 MG TABLET (FP) PO ONE ×2 (11:15→22:00)
[2018-07-11] MEDS ORDERED: hydrOXYzine PAMOATE 50 MG CAPSULE (FP) PO PRN (18:51)
[2018-07-11] MEDS: THIAMINE HCL 100 MG TABLET (FP) PO SCH (22:19)
[2018-07-11] MEDS: QUEtiapine FUMARATE 100 MG TABLET (FP) PO SCH (22:19)
[2018-07-12] MEDS: GABAPENTIN 300 MG CAPSULE (FP) PO SCH (05:48)
[2018-07-12] MEDS ORDERED: METHADONE HCL 5 MG TABLET (FOR DETOX USE ONLY) PO SCH (06:00)
[2018-07-12] MEDS ORDERED: BACLOFEN 10 MG TABLET (FP) PO ONE ×2 (09:00→10:00)
[2018-07-12] MEDS: cloNIDine HCL 0.1 MG TABLET PO SCH (09:36)
[2018-07-12] MEDS: BACITRACIN 0.9 GM PACKET TP SCH (09:36)
[2018-07-12] MEDS: PRENATAL VITAMINS W/ FOLIC ACID TABLET (FP) PO SCH (09:36)
[2018-07-12] MEDS: SULFAMETHOXAZOLE/TRIMETHOPRIM 800MG/160MG D.S. TABLET PO SCH (09:36)
[2018-07-12] MEDS: POTASSIUM CHLORIDE TABS 20 MEQ TABLET.ER (FP) PO SCH (09:36)
[2018-07-12] MEDS: NICOTINE 14 MG/24 HOURS TOPICAL PATCH TD SCH (09:36)
[2018-07-12 11:16] LABS: POTASSIUM 4.3 mmol/L (3.5-5.1)
[2018-07-12 13:32] VITALS: BP 89/56; PULSE 81; TEMP 97.5
--- NOTE | 2018-07-12 14:31 | DS ---
[facility] Detox Discharge Summary Admission Date: 07/07/18 Discharge Date: 07/12/18 - History Present History: Alcohol Dependence, Opioid Dependence, Sedative Dependence Additional Comments: 32 years old female admitted on 07/07/18 for alcohol benzo and opiate withdrawal stabilization [facility] Physical Exam Results Vital Signs: Vital Signs Temperature 97.5 F L 07/12/18 13:31 Pulse Rate 81 07/12/18 13:31 Respiratory Rate 18 07/12/18 13:31 Blood Pressure 89/56 L 07/12/18 13:31 O2 Sat by Pulse Oximetry (%) Pertinent Admission Physical Exam Findings: alcohol benzo opioid withdrawal sx Laboratory Last Values WBC 6.0 K/mm3 (4.0-10.0) 07/08/18 07:00 RBC 4.92 M/mm3 (3.60-5.2) 07/08/18 07:00 Hgb 12.2 GM/dL (10.7-15.3) 07/08/18 07:00 Hct 37.2 % (32.4-45.2) 07/08/18 07:00 MCV 75.7 fl (80-96) L 07/08/18 07:00 MCH 24.9 pg (25.7-33.7) L 07/08/18 07:00 MCHC 32.9 g/dl (32.0-36.0) 07/08/18 07:00 RDW 14.4 % (11.6-15.6) 07/08/18 07:00 Plt Count 293 K/MM3 (134-434) 07/08/18 07:00 MPV 8.4 fl (7.5-11.1) 07/08/18 07:00 Sodium 138 mmol/L (136-145) 07/08/18 07:00 Potassium 4.3 mmol/L (3.5-5.1) 07/12/18 08:15 Chloride 100 mmol/L (98-107) 07/08/18 07:00 Carbon Dioxide 29 mmol/L (21-32) 07/08/18 07:00 Anion Gap 9 MMOL/L (8-16) 07/08/18 07:00 BUN 4 mg/dL (7-18) L 07/08/18 07:00 Creatinine 0.7 mg/dL (0.55-1.3) 07/08/18 07:00 Creat Clearance w eGFR > 60 (>60) 07/08/18 07:00 Random Glucose 100 mg/dL (74-106) 07/08/18 07:00 Calcium 9.1 mg/dL (8.5-10.1) 07/08/18 07:00 Total Bilirubin 0.3 mg/dL (0.2-1) 07/08/18 07:00 AST 22 U/L (15-37) 07/08/18 07:00 ALT 17 U/L (13-61) 07/08/18 07:00 Alkaline Phosphatase 77 U/L (45-117) 07/08/18 07:00 Total Protein 8.3 g/dl (6.4-8.2) H 07/08/18 07:00 Albumin 3.5 g/dl (3.4-5.0) 07/08/18 07:00 Urine Color Alejandra 07/09/18 11:40 Urine Appearance Turbid 07/09/18 11:40 Urine pH 7.0 (5.0-8.0) D 07/09/18 11:40 Ur Specific [place] 1.006 (1.010-1.035) L 07/09/18 11:40 Urine Protein 2+ (NEGATIVE) H 07/09/18 11:40 Urine Glucose (UA) Negative (NEGATIVE) 07/09/18 11:40 Urine Ketones Negative (NEGATIVE) 07/09/18 11:40 Urine Blood 1+ (NEGATIVE) H 07/09/18 11:40 Urine Nitrite Negative (NEGATIVE) 07/09/18 11:40 Urine Bilirubin Negative (<2.0 mg/dL) 07/09/18 11:40 Urine Urobilinogen Negative mg/dL (0.2-1.0) 07/09/18 11:40 Ur Leukocyte Esterase 2+ (NEGATIVE) H 07/09/18 11:40 Urine WBC (Auto) 170 /hpf (3-5) 07/09/18 11:40 Urine RBC (Auto) 22 /hpf (0-3) 07/09/18 11:40 Ur Epithelial Cells Rare /HPF (FEW) 07/09/18 11:40 Urine Bacteria Rare /hpf (NONE SEEN) 07/08/18 00:01 Urine Mucus Few 07/09/18 11:40 RPR Titer Nonreactive (NONREACTIVE) 07/08/18 07:00 lab noted - Treatment Hospital Course: Detox Protocol Followed, Detoxed Safely, Responded well, Discharged Condition Good, Rehab Referral Accepted Patient has Accepted a Rehab Referral to: [facility] - Medication Discharge Medications: Ambulatory Orders Naloxone HCl [Narcan] 4 mg NS ASDIR PRN #1 spray 07/11/18 Potassium Chloride [K-Dur -] 20 meq PO BID@1000,1800 #10 tablet.er 07/11/18 Sulfamethoxazole/Trimethoprim [Bactrim DS -] 1 each PO BID #7 tablet 07/11/18 - Diagnosis (1) Alcohol dependence with withdrawal Status: Acute Qualifiers: Complication of substance-induced condition: uncomplicated Qualified Code(s ): F10.230 - Alcohol dependence with withdrawal, uncomplicated (2) Opioid dependence with withdrawal Status: Acute (3) Sedative, hypnotic or anxiolytic dependence with withdrawal, uncomplicated Status: Acute (4) Asthma Status: Chronic Qualifiers: Asthma severity: mild Asthma persistence: intermittent Asthma complication type: uncomplicated Qualified Code(s): J45.20 - Mild intermittent asthma, uncomplicated (5) Substance induced mood disorder Status: Suspected - AMA Did Patient Leave Against Medical Advice: No
== END 2018-07-12 13:45 | disposition other institution (70) | DRG 773 ==
LOC: YASAS 13:49 → Y3N 18:13
PROVIDERS: ADMIT Surgery; ATTEND Surgery
PROC: HZ2ZZZZ Detoxification Services for Substance Abuse Treatment (ICD-10-PCS; principal; 2018-07-07)
DX: F11.23 Opioid dependence with withdrawal (principal); F13.230 Sedative, hypnotic or anxiolytic dependence with withdrawal, uncomplicated; F10.230 Alcohol dependence with withdrawal, uncomplicated; F14.20 Cocaine dependence, uncomplicated; F19.282 Other psychoactive substance dependence with psychoactive substance-induced sleep disorder; F19.24 Other psychoactive substance dependence with psychoactive substance-induced mood disorder; F31.9 Bipolar disorder, unspecified; G47.00 Insomnia, unspecified; J45.20 Mild intermittent asthma, uncomplicated; E87.6 Hypokalemia; M54.5 Low back pain; Z87.442 Personal history of urinary calculi; Z91.5 Personal history of self-harm; Z91.19 Patient's noncompliance with other medical treatment and regimen
CPT/HCPCS: 36415; 80053; 81003; 81015; 84132; 84439; 84443; 84479; 85027; 86593; 93005; 93010; J0475; J0735; Q0162

== ENCOUNTER 2018-07-12 13:28 | Inpatient (IN) | payer OTHER ==
[2018-07-12] MEDS ORDERED: NICOTINE 14 MG/24 HOURS TOPICAL PATCH TD PRN (14:32)
[2018-07-12] MEDS ORDERED: MENTHOL/PHENOL 1 EACH UD MM PRN (14:32)
[2018-07-12] MEDS ORDERED: P-EPHED 60MG/TRIPROLIDI 2.5MG TABLET PO PRN (14:32)
[2018-07-12] MEDS ORDERED: NICOTINE POLACRILEX 2 MG GUM BUC PRN (14:32)
[2018-07-12] MEDS ORDERED: guaiFENesin/D-METHORPHAN HB 10 ML UNIT-DOSE CUPS PO PRN (14:32)
[2018-07-12] MEDS ORDERED: LOPERAMIDE HCL 2 MG CAPSULE PO PRN (14:32)
[2018-07-12] MEDS ORDERED: IBUPROFEN 400 MG TABLET (FP) PO PRN (14:32)
[2018-07-12] MEDS ORDERED: MAGNESIUM CITRATE 300 ML BOTTLE PO PRN (14:32)
[2018-07-12] MEDS ORDERED: MAG HYDROX/AL HYDROX/SIMETH 30 ML UNIT-DOSE CUP PO PRN (14:32)
--- NOTE | 2018-07-12 14:32 | HP ---
[facility] Rehab Assess/Revision - Admission History Admitted to Rehab from: [facility] Date of Admission to Rehab: 07/12/18 - Vital signs Vital Signs: Vital Signs Period Temp Pulse Resp BP Sys/[place] Pulse Ox Last 24 Hr 98.6 F 80 17 100/68 - Findings Detox History & Physical reviewed: Yes Concur with findings: Yes Comments/Additional Findings: trasnferred from detox to rehab admission as per protocol Inpatient Rehab Admission - Rehab Decision to Admit Inpatient rehab admission?: Yes - Initial Determination Are CD services needed?: Yes Free of communicable disease: Yes Not in need of hospitalization: Yes - Rehab Admission Criteria Previous failed treatment: Yes Poor recovery environment: Yes Comorbidities: Yes Lacks judgement: No Patient is meeting Inpatient Rehab admission criteria:: Yes
--- NOTE | 2018-07-12 15:15 | PN ---
[facility] Progress Note Note: Called by nursing staff to continue Seroquel 100 mg po HS ordered by Dr Pozo who saw patient on 06/17/18 while in detox. Seroquel 100 mg po HS ordered
--- NOTE | 2018-07-12 15:53 | PN ---
S Progress Note Note: Nurse states that client reports patient is taking levothyroxine, but has not taken her medication for >1 month. TSH, T4, [id number] ordered.
[2018-07-12] MEDS: hydrOXYzine PAMOATE 50 MG CAPSULE (FP) PO PRN (17:39)
[2018-07-12] MEDS ORDERED: BACLOFEN 10 MG TABLET (FP) PO ONE (22:00)
[2018-07-12] MEDS ORDERED: MELATONIN 5 MG TABLETS PO PRN (22:00)
[2018-07-12] MEDS ORDERED: QUEtiapine FUMARATE 100 MG TABLET (FP) PO SCH ×2 (22:00)
[2018-07-12] MEDS: THIAMINE HCL 100 MG TABLET (FP) PO SCH (23:05)
[2018-07-12] MEDS: GABAPENTIN 300 MG CAPSULE (FP) PO SCH (23:05)
[2018-07-12] MEDS: SULFAMETHOXAZOLE/TRIMETHOPRIM 800MG/160MG D.S. TABLET PO SCH (23:05)
[2018-07-13] MEDS: GABAPENTIN 300 MG CAPSULE (FP) PO SCH (06:22)
[2018-07-13] MEDS: PRENATAL VITAMINS W/ FOLIC ACID TABLET (FP) PO SCH (09:51)
[2018-07-13] MEDS: SULFAMETHOXAZOLE/TRIMETHOPRIM 800MG/160MG D.S. TABLET PO SCH ×2 (09:51→21:53)
[2018-07-13] MEDS ORDERED: CYCLOBENZAPRINE HCL 10 MG TABLET (FP) PO PRN (10:58)
[2018-07-13] MEDS ORDERED: cloNIDine HCL 0.1 MG TABLET PO PRN (10:59)
--- NOTE | 2018-07-13 11:04 | PN ---
S Progress Note Note: NURSE CALLED TO REPORT PT C/O WITHDRAWAL SX-HOT/COLD FLASHES,ANXIETY,BODY ACHES , SWEATS. PT COMPLETED DETOX FOR HEROIN AND BENZO ON 07/12/18 AND REFERRED TO REHAB SAME DAY. Vital Signs - 24 hr 07/12/18 07/13/18 07/13/18 14:11 00:30 03:30 Temperature 98.6 F Pulse Rate 80 Respiratory 17 18 18 Rate Blood Pressure 100/68 07/13/18 07/13/18 07:04 09:22 Temperature 97.2 F L 98.2 F Pulse Rate 67 93 H Respiratory 18 17 Rate Blood Pressure 104/70 116/78 PLAN:CLONIDINE 0.1 MG PO BID PRN FLEXERIL 10 MG PO TID PRN INCREASE PO FLUIDS
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
[2018-07-13] MEDS ORDERED: GABAPENTIN 300 MG CAPSULE (FP) PO SCH (12:04)
[2018-07-13] MEDS ORDERED: COLLOIDAL OATMEAL 1 BAR EACH TP PRN (12:47)
[2018-07-13] MEDS ORDERED: GABAPENTIN 100 MG CAPSULE (FP) ONE ×2 (13:46→19:49)
[2018-07-13] MEDS: GABAPENTIN 400 MG, GABAPENTIN 100 MG PO SCH ×2 (13:46→21:52)
[2018-07-13] MEDS ORDERED: GABAPENTIN 400 MG CAPSULE (FP) ONE ×2 (13:46→19:49)
[2018-07-13] MEDS: DULoxetine HCL 20 MG CAPSULE.DR (FP) PO SCH (13:46)
[2018-07-13] MEDS: LIDOCAINE 5% TOPICAL PATCH TP SCH (13:47)
[2018-07-13] MEDS ORDERED: BACLOFEN 10 MG TABLET (FP) PO SCH (14:00)
[2018-07-13] MEDS: BACLOFEN 10 MG TABLET (FP) PO PRN ×2 (14:09→21:52)
[2018-07-13] MEDS ORDERED: LEVOTHYROXINE NA 175 MCG TABLET PO SCH (14:15)
[2018-07-13] MEDS ORDERED: LEVOTHYROXINE 100 MCG, LEVOTHYROXINE 75 MCG PO ONE (14:30)
[2018-07-13] MEDS ORDERED: LEVOTHYROXINE NA 25 MCG TABLET (FP) ONE (15:10)
[2018-07-13] MEDS ORDERED: LEVOTHYROXINE NA 100 MCG TABLET (FP) ONE (15:10)
[2018-07-13] MEDS: ACETAMINOPHEN 325 MG TABLET (FP) PO PRN (17:51)
[2018-07-13] MEDS: MAGNESIUM HYDROX 2400MG/30ML ORAL SUSPENSION 30 ML CUP PO PRN (17:52)
[2018-07-13] MEDS: THIAMINE HCL 100 MG TABLET (FP) PO SCH (21:53)
[2018-07-13] MEDS: NAPROXEN 500 MG TABLET (FP) PO SCH (21:53)
[2018-07-13] MEDS: LIDOCAINE PATCH REMOVAL MC SCH (21:54)
[2018-07-13] MEDS: QUEtiapine FUMARATE 50 MG TABLET PO SCH (21:55)
[2018-07-13] MEDS: SUVOREXANT 10 MG TABLET PO PRN (21:58)
[2018-07-13] MEDS: hydrOXYzine PAMOATE 50 MG CAPSULE (FP) PO PRN (22:41)
[2018-07-14] MEDS ORDERED: GABAPENTIN 400 MG CAPSULE (FP) ONE ×2 (03:12→13:06)
[2018-07-14] MEDS ORDERED: GABAPENTIN 100 MG CAPSULE (FP) ONE ×2 (03:13→13:06)
[2018-07-14] MEDS ORDERED: LEVOTHYROXINE NA 100 MCG TABLET (FP) ONE (06:07)
[2018-07-14] MEDS ORDERED: LEVOTHYROXINE NA 25 MCG TABLET (FP) ONE (06:07)
[2018-07-14] MEDS: LEVOTHYROXINE 100 MCG, LEVOTHYROXINE 75 MCG PO SCH (06:54)
[2018-07-14] MEDS: GABAPENTIN 400 MG, GABAPENTIN 100 MG PO SCH ×2 (06:54→14:08)
[2018-07-14] MEDS: NAPROXEN 500 MG TABLET (FP) PO SCH ×2 (09:00→21:56)
[2018-07-14] MEDS: PRENATAL VITAMINS W/ FOLIC ACID TABLET (FP) PO SCH (09:00)
[2018-07-14] MEDS: SULFAMETHOXAZOLE/TRIMETHOPRIM 800MG/160MG D.S. TABLET PO SCH ×2 (09:00→21:56)
[2018-07-14] MEDS: LIDOCAINE 5% TOPICAL PATCH TP SCH (09:01)
[2018-07-14] MEDS: DULoxetine HCL 20 MG CAPSULE.DR (FP) PO SCH (09:01)
[2018-07-14] MEDS: hydrOXYzine PAMOATE 50 MG CAPSULE (FP) PO PRN (09:09)
[2018-07-14] MEDS ORDERED: NICOTINE POLACRILEX 2 MG GUM BUC PRN (11:58)
[2018-07-14] MEDS ORDERED: NICOTINE 14 MG/24 HOURS TOPICAL PATCH TD PRN (13:15)
[2018-07-14] MEDS: BACLOFEN 10 MG TABLET (FP) PO PRN (13:17)
[2018-07-14] MEDS: cloNIDine HCL 0.1 MG TABLET PO PRN (13:17)
--- NOTE | 2018-07-14 15:01 | PN ---
Psychiatric Progress Note Vital Signs: Vital Signs Period Temp Pulse Resp BP Sys/[place] Pulse Ox Last 24 Hr 97.3 F 81-100 16-18 92-120/60-72 Date of Session: 07/14/18 Chief Complaint:: "I feel very anxious" HPI: Patient is a 32 years old female with history of alcohol, cocaine and benzodiazepine use admitted from detox on 07/12/18 ROS: Asthma, Hypothyroidism, Back pain Current Medications: Active Medications Generic Name Dose Route Start Last Admin Trade Name Freq PRN Reason Stop Dose Admin Acetaminophen 650 mg 07/12/18 14:32 07/13/18 17:51 Tylenol - PO 650 mg Q4H PRN Administration FEVER Al Hydroxide/Mg Hydroxide 30 ml 07/12/18 14:32 Mylanta Oral Suspension - PO Q6H PRN DYSPEPSIA Baclofen 10 mg 07/13/18 12:22 07/14/18 13:17 Lioresal - PO 10 mg TID PRN Administration MUSCLE SPASMS Clonidine 0.1 mg 07/14/18 13:11 07/14/18 13:17 Catapres - PO 0.1 mg BID PRN Administration WITHDRAWAL(CONT SUBST) Duloxetine HCl 20 mg 07/13/18 12:15 07/14/18 09:01 Cymbalta - PO 20 mg DAILY JANINE Administration Eucalyptus/Menthol/Phenol/Sorbitol 1 each 07/12/18 14:32 Cepastat Lozenge - MM Q4H PRN SORE THROAT Gabapentin 800 mg 07/14/18 22:00 Neurontin - PO TID JANINE Guaifenesin 10 ml 07/12/18 14:32 Robitussin Dm - PO Q6H PRN COUGH Hydroxyzine Pamoate 50 mg 07/12/18 17:07 07/14/18 09:09 Vistaril - PO 50 mg Q6H PRN Administration AGITATION Levothyroxine Sodium 100 mcg/ 175 mcg 07/14/18 07:00 07/14/18 06:54 Levothyroxine Sodium 75 mcg PO 175 mcg DAILY@0700 JANINE Administration Lidocaine 1 patch 07/13/18 13:45 07/14/18 09:01 Lidoderm Patch - TP 1 patch DAILY JANINE Administration Loperamide HCl 4 mg 07/12/18 14:32 Imodium - PO Q6H PRN DIARRHEA Magnesium Citrate 300 ml 07/12/18 14:32 07/14/18 08:57 Citroma - PO 300 ml Q48H PRN Administration CONSTIPATION Magnesium Hydroxide 30 ml 07/12/18 14:32 07/13/18 17:52 Milk Of Magnesia - PO 30 ml DAILY PRN Administration CONSTIPATION Melatonin 5 mg 07/12/18 22:00 Melatonin PO HS PRN INSOMNIA Miscellaneous 1 each 07/13/18 22:00 07/13/18 21:54 Lidoderm Patch Removal MC 1 each DAILY@2200 JANINE Administration Naproxen 500 mg 07/13/18 22:00 07/14/18 09:00 Naprosyn - PO 07/20/18 21:59 500 mg BID JANINE Administration Nicotine 21 mg 07/14/18 14:00 Nicoderm Patch - TD DAILY JANINE Nicotine Polacrilex 4 mg 07/14/18 11:58 07/14/18 13:08 Nicorette Gum - BUC 4 mg Q2H PRN Administration NICOTINE REPLACEMENT RX Multivit/Folic Acid/Iron 1 tab 07/13/18 10:00 07/14/18 09:00 Vitamins (Sjr) - PO 1 tab DAILY JANINE Administration Pseudoephedrine/Triprolidine 1 combo 07/12/18 14:32 Actifed - PO TID PRN NASAL CONGESTION Quetiapine Fumarate 150 mg 07/13/18 22:00 07/13/18 21:55 Seroquel - PO 150 mg HS JANINE Administration Sodium Phosphate 133 ml 07/15/18 10:00 Fleet Adult Rectal Enema - FL 07/15/18 10:01 ONCE ONE Suvorexant 10 mg 07/13/18 12:02 07/13/18 21:58 Belsomra PO 10 mg HS PRN Administration INSOMNIA Thiamine HCl 100 mg 07/12/18 22:00 07/13/18 21:53 Vitamin B1 - PO 100 mg HS JANINE Administration Trimethoprim/Sulfamethoxazole 1 each 07/12/18 22:00 07/14/18 09:00 Bactrim Ds - PO 07/19/18 21:59 1 each BID JANINE Administration Current Side Effect: No Lab tests ordered: Yes Lab tests reviewed: Yes Provider note:: Patient reports feeling very anxious and requests adjustment in her med regimen. She is currently on Gabapentin 500 mg po TID, Seroquel 150 mg po HS and Vistaril 50 mg Q 4hrs prn. 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 Claims Vistaril does not help her. Discussed with patient about increasing Gabapentin dosage to 800 mg po TID and Vistaril 50 mg po Q 4hrs prn Total face to face time:: 15 Mental Status Exam - Mental Status Exam Alert and Oriented to: Time, Place, Person Cognitive Function: Fair Patient Appearance: Well Groomed Mood: Anxious Affect: Appropriate Patient Behavior: Cooperative Speech Pattern: Clear Voice Loudness: Normal Thought Process: Intact Thought Disorder: Not Present Hallucinations: Denies Suicidal Ideation: Denies Homicidal Ideation: Denies Insight/Judgement: Fair Sleep: Fair Appetite: Good Muscle strength/Tone: Normal Gait/Station: Normal Psychiatric Treatment Plan - Problem List (1) Substance induced mood disorder Current Visit: Yes (2) Substance-induced sleep disorder Current Visit: Yes (3) Alcohol dependence Current Visit: Yes (4) Cocaine dependence Current Visit: Yes (5) Sedative hypnotic or anxiolytic dependence Current Visit: Yes (6) Nicotine dependence Current Visit: Yes (7) Back pain Current Visit: Yes (8) Hypothyroid Current Visit: Yes Qualifiers: (9) Asthma Current Visit: Yes Qualifiers: Initial treatment plan: 1) Discontinue Gabapentin 500 mg po TID. 2) Start Gabapentin 800 mg po TID. 3) Continue inpatient rehabilitation
[2018-07-14] MEDS: NICOTINE 21 MG/24 HOURS TOPICAL PATCH TD SCH (15:10)
[2018-07-14] MEDS: QUEtiapine FUMARATE 50 MG TABLET PO SCH (21:56)
[2018-07-14] MEDS: THIAMINE HCL 100 MG TABLET (FP) PO SCH (21:56)
[2018-07-14] MEDS: LIDOCAINE PATCH REMOVAL MC SCH (21:56)
[2018-07-14] MEDS: GABAPENTIN 400 MG CAPSULE (FP) PO SCH (21:57)
[2018-07-14] MEDS: SUVOREXANT 10 MG TABLET PO PRN (21:59)
[2018-07-15] MEDS ORDERED: LEVOTHYROXINE NA 100 MCG TABLET (FP) ONE (06:07)
[2018-07-15] MEDS ORDERED: LEVOTHYROXINE NA 25 MCG TABLET (FP) ONE (06:07)
[2018-07-15] MEDS: GABAPENTIN 400 MG CAPSULE (FP) PO SCH ×3 (06:39→21:54)
[2018-07-15] MEDS: LEVOTHYROXINE 100 MCG, LEVOTHYROXINE 75 MCG PO SCH (06:39)
[2018-07-15] MEDS ORDERED: SODIUM PHOSPHATE/NA BIPHOS 133 ML ENEMA PR ONE (10:00)
[2018-07-15] MEDS: NICOTINE 21 MG/24 HOURS TOPICAL PATCH TD SCH (10:25)
[2018-07-15] MEDS: NAPROXEN 500 MG TABLET (FP) PO SCH ×2 (10:25→21:54)
[2018-07-15] MEDS: LIDOCAINE 5% TOPICAL PATCH TP SCH (10:25)
[2018-07-15] MEDS: PRENATAL VITAMINS W/ FOLIC ACID TABLET (FP) PO SCH (10:25)
[2018-07-15] MEDS: SULFAMETHOXAZOLE/TRIMETHOPRIM 800MG/160MG D.S. TABLET PO SCH ×2 (10:26→21:54)
[2018-07-15] MEDS: DULoxetine HCL 20 MG CAPSULE.DR (FP) PO SCH (10:26)
--- NOTE | 2018-07-15 10:29 | PN ---
S Progress Note Note: PT C/O CONSTIPATION NOT RELIEVED WITH MOM OR CITRATE OF MG X 2-3 DAYS. DENIES N/ V. Vital Signs - 24 hr 07/15/18 07/15/18 07/15/18 00:30 03:30 07:28 Temperature 97.6 F Pulse Rate 70 Respiratory 17 18 18 Rate Blood Pressure 95/62 Active Medications Generic Name Dose Route Start Last Admin Trade Name Freq PRN Reason Stop Dose Admin Acetaminophen 650 mg 07/12/18 14:32 07/13/18 17:51 Tylenol - PO 650 mg Q4H PRN Administration FEVER Al Hydroxide/Mg Hydroxide 30 ml 07/12/18 14:32 Mylanta Oral Suspension - PO Q6H PRN DYSPEPSIA Baclofen 10 mg 07/13/18 12:22 07/14/18 13:17 Lioresal - PO 10 mg TID PRN Administration MUSCLE SPASMS Clonidine 0.1 mg 07/14/18 13:11 07/14/18 13:17 Catapres - PO 0.1 mg BID PRN Administration WITHDRAWAL(CONT SUBST) Duloxetine HCl 20 mg 07/13/18 12:15 07/14/18 09:01 Cymbalta - PO 20 mg DAILY JANINE Administration Eucalyptus/Menthol/Phenol/Sorbitol 1 each 07/12/18 14:32 Cepastat Lozenge - MM Q4H PRN SORE THROAT Gabapentin 800 mg 07/14/18 22:00 07/15/18 06:39 Neurontin - PO 800 mg TID JANINE Administration Guaifenesin 10 ml 07/12/18 14:32 Robitussin Dm - PO Q6H PRN COUGH Hydroxyzine Pamoate 50 mg 07/12/18 17:07 07/14/18 09:09 Vistaril - PO 50 mg Q6H PRN Administration AGITATION Levothyroxine Sodium 100 mcg/ 175 mcg 07/14/18 07:00 07/15/18 06:39 Levothyroxine Sodium 75 mcg PO 175 mcg DAILY@0700 JANINE Administration Lidocaine 1 patch 07/13/18 13:45 07/14/18 09:01 Lidoderm Patch - TP 1 patch DAILY JANINE Administration Loperamide HCl 4 mg 07/12/18 14:32 Imodium - PO Q6H PRN DIARRHEA Magnesium Citrate 300 ml 07/12/18 14:32 07/14/18 08:57 Citroma - PO 300 ml Q48H PRN Administration CONSTIPATION Magnesium Hydroxide 30 ml 07/12/18 14:32 07/13/18 17:52 Milk Of Magnesia - PO 30 ml DAILY PRN Administration CONSTIPATION Melatonin 5 mg 07/12/18 22:00 Melatonin PO HS PRN INSOMNIA Miscellaneous 1 each 07/13/18 22:00 07/14/18 21:56 Lidoderm Patch Removal MC Not Given DAILY@2200 JANINE Naproxen 500 mg 07/13/18 22:00 07/14/18 21:56 Naprosyn - PO 07/20/18 21:59 500 mg BID JANINE Administration Nicotine 21 mg 07/14/18 14:00 07/14/18 15:10 Nicoderm Patch - TD 21 mg DAILY JANINE Administration Nicotine Polacrilex 4 mg 07/14/18 11:58 07/14/18 13:08 Nicorette Gum - BUC 4 mg Q2H PRN Administration NICOTINE REPLACEMENT RX Multivit/Folic Acid/Iron 1 tab 07/13/18 10:00 07/14/18 09:00 Vitamins (Sjr) - PO 1 tab DAILY JANINE Administration Pseudoephedrine/Triprolidine 1 combo 07/12/18 14:32 Actifed - PO TID PRN NASAL CONGESTION Quetiapine Fumarate 150 mg 07/13/18 22:00 07/14/18 21:56 Seroquel - PO 150 mg HS JANINE Administration Suvorexant 10 mg 07/13/18 12:02 07/14/18 21:59 Belsomra PO 10 mg HS PRN Administration INSOMNIA Thiamine HCl 100 mg 07/12/18 22:00 07/14/18 21:56 Vitamin B1 - PO 100 mg HS JANINE Administration Trimethoprim/Sulfamethoxazole 1 each 07/12/18 22:00 07/14/18 21:56 Bactrim Ds - PO 07/19/18 21:59 1 each BID JANINE Administration A:CONSTIPATION PLAN:FLEET ENEMA X 1 IF NO BM WITH MOM AND/OR CITROMA ON 07/15/18. INCREASE PO FLUIDS
[2018-07-15] MEDS: cloNIDine HCL 0.1 MG TABLET PO PRN (10:31)
[2018-07-15] MEDS: hydrOXYzine PAMOATE 50 MG CAPSULE (FP) PO PRN (14:28)
[2018-07-15] MEDS: SUVOREXANT 10 MG TABLET PO PRN (21:35)
[2018-07-15] MEDS: THIAMINE HCL 100 MG TABLET (FP) PO SCH (21:55)
[2018-07-15] MEDS: QUEtiapine FUMARATE 50 MG TABLET PO SCH (21:55)
[2018-07-15] MEDS: LIDOCAINE PATCH REMOVAL MC SCH (21:56)
[2018-07-16] MEDS ORDERED: LEVOTHYROXINE NA 25 MCG TABLET (FP) ONE (05:21)
[2018-07-16] MEDS ORDERED: LEVOTHYROXINE NA 100 MCG TABLET (FP) ONE (05:22)
[2018-07-16] MEDS: GABAPENTIN 400 MG CAPSULE (FP) PO SCH ×3 (07:00→21:38)
[2018-07-16] MEDS: LEVOTHYROXINE 100 MCG, LEVOTHYROXINE 75 MCG PO SCH (07:00)
[2018-07-16] MEDS: LIDOCAINE 5% TOPICAL PATCH TP SCH (10:36)
[2018-07-16] MEDS: PRENATAL VITAMINS W/ FOLIC ACID TABLET (FP) PO SCH (10:36)
[2018-07-16] MEDS: NAPROXEN 500 MG TABLET (FP) PO SCH ×2 (10:37→21:38)
[2018-07-16] MEDS: NICOTINE 21 MG/24 HOURS TOPICAL PATCH TD SCH (10:37)
[2018-07-16] MEDS: SULFAMETHOXAZOLE/TRIMETHOPRIM 800MG/160MG D.S. TABLET PO SCH ×2 (10:37→21:38)
[2018-07-16] MEDS: DULoxetine HCL 20 MG CAPSULE.DR (FP) PO SCH (10:37)
[2018-07-16] MEDS: hydrOXYzine PAMOATE 50 MG CAPSULE (FP) PO PRN ×2 (10:38→22:15)
[2018-07-16] MEDS: MAGNESIUM HYDROX 2400MG/30ML ORAL SUSPENSION 30 ML CUP PO PRN (10:38)
[2018-07-16] MEDS: cloNIDine HCL 0.1 MG TABLET PO PRN ×2 (10:38→22:15)
[2018-07-16] MEDS: BACLOFEN 10 MG TABLET (FP) PO PRN ×2 (13:12→20:18)
[2018-07-16] MEDS: THIAMINE HCL 100 MG TABLET (FP) PO SCH (21:38)
[2018-07-16] MEDS: QUEtiapine FUMARATE 50 MG TABLET PO SCH (21:38)
[2018-07-16] MEDS: LIDOCAINE PATCH REMOVAL MC SCH (21:41)
[2018-07-17] MEDS: ACETAMINOPHEN 325 MG TABLET (FP) PO PRN (00:25)
[2018-07-17] MEDS ORDERED: ASPIRIN 81 MG CHEWABLE TABLETS PO ONE (00:58)
--- NOTE | 2018-07-17 01:36 | PN ---
GLORY Progress Note Note: Patient complained of chest pain. Unable to rate her pain Vital Signs Temperature 97.7 F 07/16/18 07:00 Pulse Rate 76 07/16/18 09:30 Respiratory Rate 18 07/17/18 00:30 Blood Pressure 111/66 07/16/18 09:30 O2 Sat by Pulse Oximetry (%) Action: EKG ordered-Sinus bradycardia otherwise normal ECG Aspirin 81mg 1 tablet oral stat
[2018-07-17] MEDS ORDERED: LEVOTHYROXINE NA 100 MCG TABLET (FP) ONE (02:23)
[2018-07-17] MEDS ORDERED: LEVOTHYROXINE NA 25 MCG TABLET (FP) ONE (02:23)
[2018-07-17] MEDS: BACLOFEN 10 MG TABLET (FP) PO PRN ×2 (06:17→18:36)
[2018-07-17] MEDS: GABAPENTIN 400 MG CAPSULE (FP) PO SCH ×3 (06:18→21:10)
[2018-07-17] MEDS: LEVOTHYROXINE 100 MCG, LEVOTHYROXINE 75 MCG PO SCH (06:18)
[2018-07-17] MEDS: DULoxetine HCL 20 MG CAPSULE.DR (FP) PO SCH (09:26)
[2018-07-17] MEDS: SULFAMETHOXAZOLE/TRIMETHOPRIM 800MG/160MG D.S. TABLET PO SCH ×2 (09:26→21:10)
[2018-07-17] MEDS: LIDOCAINE 5% TOPICAL PATCH TP SCH (09:26)
[2018-07-17] MEDS: NAPROXEN 500 MG TABLET (FP) PO SCH ×2 (09:26→21:10)
[2018-07-17] MEDS: PRENATAL VITAMINS W/ FOLIC ACID TABLET (FP) PO SCH (09:27)
[2018-07-17] MEDS: NICOTINE 21 MG/24 HOURS TOPICAL PATCH TD SCH (09:27)
[2018-07-17] MEDS: cloNIDine HCL 0.1 MG TABLET PO PRN (09:29)
[2018-07-17] MEDS: hydrOXYzine PAMOATE 50 MG CAPSULE (FP) PO PRN ×2 (09:29→21:11)
[2018-07-17] MEDS ORDERED: PT OWN MED DRAWER 7, Y5N ONE (15:46)
[2018-07-17] MEDS: QUEtiapine FUMARATE 50 MG TABLET PO SCH (21:10)
[2018-07-17] MEDS: THIAMINE HCL 100 MG TABLET (FP) PO SCH (21:10)
[2018-07-17] MEDS: LIDOCAINE PATCH REMOVAL MC SCH (21:13)
[2018-07-18] MEDS ORDERED: LEVOTHYROXINE NA 25 MCG TABLET (FP) ONE (03:21)
[2018-07-18] MEDS ORDERED: LEVOTHYROXINE NA 100 MCG TABLET (FP) ONE (03:22)
[2018-07-18] MEDS: BACLOFEN 10 MG TABLET (FP) PO PRN ×2 (06:45→13:58)
[2018-07-18] MEDS: GABAPENTIN 400 MG CAPSULE (FP) PO SCH ×3 (06:45→21:26)
[2018-07-18] MEDS: LEVOTHYROXINE 100 MCG, LEVOTHYROXINE 75 MCG PO SCH (06:45)
[2018-07-18] MEDS: NAPROXEN 500 MG TABLET (FP) PO SCH ×2 (09:45→21:26)
[2018-07-18] MEDS: SULFAMETHOXAZOLE/TRIMETHOPRIM 800MG/160MG D.S. TABLET PO SCH ×2 (09:45→21:26)
[2018-07-18] MEDS: NICOTINE 21 MG/24 HOURS TOPICAL PATCH TD SCH (09:45)
[2018-07-18] MEDS: LIDOCAINE 5% TOPICAL PATCH TP SCH (09:45)
[2018-07-18] MEDS: DULoxetine HCL 20 MG CAPSULE.DR (FP) PO SCH (09:46)
[2018-07-18] MEDS: PRENATAL VITAMINS W/ FOLIC ACID TABLET (FP) PO SCH (09:46)
[2018-07-18] MEDS: hydrOXYzine PAMOATE 50 MG CAPSULE (FP) PO PRN (09:47)
[2018-07-18] MEDS: cloNIDine HCL 0.1 MG TABLET PO PRN (09:56)
--- NOTE | 2018-07-18 15:15 | PN ---
Psychiatric Progress Note Vital Signs: Vital Signs Period Temp Pulse Resp BP Sys/[place] Pulse Ox Last 24 Hr 98.2 F 98 16-18 117/81 Date of Session: 07/18/18 Chief Complaint:: Juan Alberto still anxious,shaking,ongoing sleeping difficulties,feel panic. HPI: Patient addressed Alcohol,anxiolytic and Cocaine dependence comorbid with B[place]eline personality and Substance induced mood disorder. ROS: Hypothyroidism. Current Medications: Active Medications Generic Name Dose Route Start Last Admin Trade Name Freq PRN Reason Stop Dose Admin Acetaminophen 650 mg 07/12/18 14:32 07/17/18 00:25 Tylenol - PO 650 mg Q4H PRN Administration FEVER Al Hydroxide/Mg Hydroxide 30 ml 07/12/18 14:32 Mylanta Oral Suspension - PO Q6H PRN DYSPEPSIA Baclofen 10 mg 07/13/18 12:22 07/18/18 13:58 Lioresal - PO 10 mg TID PRN Administration MUSCLE SPASMS Clonidine 0.1 mg 07/14/18 13:11 07/18/18 09:56 Catapres - PO 0.1 mg BID PRN Administration WITHDRAWAL(CONT SUBST) Duloxetine HCl 20 mg 07/13/18 12:15 07/18/18 09:46 Cymbalta - PO 20 mg DAILY JANINE Administration Eucalyptus/Menthol/Phenol/Sorbitol 1 each 07/12/18 14:32 Cepastat Lozenge - MM Q4H PRN SORE THROAT Gabapentin 800 mg 07/14/18 22:00 07/18/18 13:58 Neurontin - PO 800 mg TID JANINE Administration Guaifenesin 10 ml 07/12/18 14:32 Robitussin Dm - PO Q6H PRN COUGH Hydroxyzine Pamoate 50 mg 07/12/18 17:07 07/18/18 09:47 Vistaril - PO 50 mg Q6H PRN Administration AGITATION Levothyroxine Sodium 100 mcg/ 175 mcg 07/14/18 07:00 07/18/18 06:45 Levothyroxine Sodium 75 mcg PO 175 mcg DAILY@0700 JANINE Administration Lidocaine 1 patch 07/13/18 13:45 07/18/18 09:45 Lidoderm Patch - TP 1 patch DAILY JANINE Administration Loperamide HCl 4 mg 07/12/18 14:32 Imodium - PO Q6H PRN DIARRHEA Magnesium Citrate 300 ml 07/12/18 14:32 07/14/18 08:57 Citroma - PO 300 ml Q48H PRN Administration CONSTIPATION Magnesium Hydroxide 30 ml 07/12/18 14:32 07/16/18 10:38 Milk Of Magnesia - PO 30 ml DAILY PRN Administration CONSTIPATION Melatonin 5 mg 07/12/18 22:00 Melatonin PO HS PRN INSOMNIA Miscellaneous 1 each 07/13/18 22:00 07/17/18 21:13 Lidoderm Patch Removal MC 1 each DAILY@2200 JANINE Administration Naproxen 500 mg 07/13/18 22:00 07/18/18 09:45 Naprosyn - PO 07/20/18 21:59 500 mg BID JANINE Administration Nicotine 21 mg 07/14/18 14:00 07/18/18 09:45 Nicoderm Patch - TD 21 mg DAILY JANINE Administration Nicotine Polacrilex 4 mg 07/14/18 11:58 07/14/18 13:08 Nicorette Gum - BUC 4 mg Q2H PRN Administration NICOTINE REPLACEMENT RX Multivit/Folic Acid/Iron 1 tab 07/13/18 10:00 07/18/18 09:46 Vitamins (Sjr) - PO 1 tab DAILY JANINE Administration Pseudoephedrine/Triprolidine 1 combo 07/12/18 14:32 Actifed - PO TID PRN NASAL CONGESTION Quetiapine Fumarate 150 mg 07/13/18 22:00 07/17/18 21:10 Seroquel - PO 150 mg HS JANINE Administration Thiamine HCl 100 mg 07/12/18 22:00 07/17/18 21:10 Vitamin B1 - PO 100 mg HS JANINE Administration Trimethoprim/Sulfamethoxazole 1 each 07/12/18 22:00 07/18/18 09:45 Bactrim Ds - PO 07/19/18 21:59 1 each BID JANINE Administration Current Side Effect: No Lab tests ordered: No Lab tests reviewed: Yes Provider note:: Chart was revuewed,patient was reevalusted in my office to address ongoing anxiety,crying spells,restlessness.Prooerties of Elavil has been discussed with the patient as well as Belsomra. Patient will continue current meds.Seroquel 150 mg po hs will be adjusted to 200 mg po hs,add Elavil 25 mg po tid and Belsomra 10 mg po hs prn. Supportive therapy provided. Will monitor progress. Mental Status Exam - Mental Status Exam Alert and Oriented to: Time, Place, Person Cognitive Function: Grossly Intact Patient Appearance: Well Groomed Mood: Nervous, Anxious, Apprehensive, Irritable Affect: Mood Congruent, Labile Patient Behavior: Restless, Cooperative Voice Loudness: Normal Thought Process: Goal Oriented Thought Disorder: Not Present Hallucinations: Denies Suicidal Ideation: Denies Homicidal Ideation: Denies Insight/Judgement: Fair Sleep: Difficulty falling asleep Appetite: Good Muscle strength/Tone: Normal Gait/Station: Normal Psychiatric Treatment Plan - Problem List (1) Alcohol dependence with withdrawal Current Visit: Yes Qualifiers: Comment: . (2) Back pain Current Visit: Yes (3) IVDU (intravenous drug user) Current Visit: Yes (4) Sedative, hypnotic or anxiolytic dependence with withdrawal, uncomplicated Current Visit: Yes Comment: . (5) Cocaine dependence Current Visit: Yes (6) Substance-induced sleep disorder Current Visit: Yes Comment: . (7) Asthma Current Visit: Yes Qualifiers: (8) Hypothyroid Current Visit: Yes Qualifiers: (9) Substance induced mood disorder Current Visit: Yes Comment: . (10) Borderline personality disorder Current Visit: Yes (11) Cocaine dependence Current Visit: Yes
[2018-07-18] MEDS: AMITRIPTYLINE HCL 25 MG TABLET (FP) PO SCH ×2 (15:47→21:31)
[2018-07-18] MEDS ORDERED: AMITRIPTYLINE HCL 25 MG TABLET (FP) PO ONE (16:00)
[2018-07-18] MEDS: QUEtiapine FUMARATE 100 MG TABLET (FP) PO SCH (21:26)
[2018-07-18] MEDS: THIAMINE HCL 100 MG TABLET (FP) PO SCH (21:26)
[2018-07-18] MEDS: SUVOREXANT 10 MG TABLET PO PRN (21:26)
[2018-07-18] MEDS: LIDOCAINE PATCH REMOVAL MC SCH (21:29)
[2018-07-18] MEDS ORDERED: AMITRIPTYLINE HCL 100 MG TABLET PO SCH (22:00)
[2018-07-18] MEDS: AMITRIPTYLINE HCL PO SCH (22:34)
[2018-07-19] MEDS ORDERED: LEVOTHYROXINE NA 100 MCG TABLET (FP) ONE (05:56)
[2018-07-19] MEDS ORDERED: LEVOTHYROXINE NA 25 MCG TABLET (FP) ONE (05:56)
[2018-07-19] MEDS: LEVOTHYROXINE 100 MCG, LEVOTHYROXINE 75 MCG PO SCH (06:33)
[2018-07-19] MEDS: GABAPENTIN 400 MG CAPSULE (FP) PO SCH ×3 (06:33→21:53)
[2018-07-19] MEDS: AMITRIPTYLINE HCL 25 MG TABLET (FP) PO SCH ×3 (06:34→21:53)
[2018-07-19] MEDS: BACLOFEN 10 MG TABLET (FP) PO PRN ×2 (06:35→14:18)
[2018-07-19] MEDS: PRENATAL VITAMINS W/ FOLIC ACID TABLET (FP) PO SCH (10:03)
[2018-07-19] MEDS: NICOTINE 21 MG/24 HOURS TOPICAL PATCH TD SCH (10:03)
[2018-07-19] MEDS: DULoxetine HCL 20 MG CAPSULE.DR (FP) PO SCH (10:03)
[2018-07-19] MEDS: NAPROXEN 500 MG TABLET (FP) PO SCH ×2 (10:03→21:53)
[2018-07-19] MEDS: LIDOCAINE 5% TOPICAL PATCH TP SCH (10:04)
[2018-07-19] MEDS: SULFAMETHOXAZOLE/TRIMETHOPRIM 800MG/160MG D.S. TABLET PO SCH (10:04)
[2018-07-19] MEDS: cloNIDine HCL 0.1 MG TABLET PO PRN ×2 (10:04→21:56)
[2018-07-19] MEDS: hydrOXYzine PAMOATE 50 MG CAPSULE (FP) PO PRN ×2 (10:05→15:29)
[2018-07-19] MEDS: THIAMINE HCL 100 MG TABLET (FP) PO SCH (21:52)
[2018-07-19] MEDS: SUVOREXANT 10 MG TABLET PO PRN (21:53)
[2018-07-19] MEDS: QUEtiapine FUMARATE 100 MG TABLET (FP) PO SCH (21:53)
[2018-07-19] MEDS: AMITRIPTYLINE HCL PO SCH (21:54)
[2018-07-19] MEDS: LIDOCAINE PATCH REMOVAL MC SCH (21:54)
[2018-07-20] MEDS ORDERED: LEVOTHYROXINE NA 25 MCG TABLET (FP) ONE (06:05)
[2018-07-20] MEDS ORDERED: LEVOTHYROXINE NA 100 MCG TABLET (FP) ONE (06:05)
[2018-07-20] MEDS: AMITRIPTYLINE HCL 25 MG TABLET (FP) PO SCH ×3 (06:41→21:47)
[2018-07-20] MEDS: LEVOTHYROXINE 100 MCG, LEVOTHYROXINE 75 MCG PO SCH (06:42)
[2018-07-20] MEDS: GABAPENTIN 400 MG CAPSULE (FP) PO SCH ×3 (06:42→21:47)
[2018-07-20] MEDS: NICOTINE 21 MG/24 HOURS TOPICAL PATCH TD SCH (09:52)
[2018-07-20] MEDS: LIDOCAINE 5% TOPICAL PATCH TP SCH (09:52)
[2018-07-20] MEDS: PRENATAL VITAMINS W/ FOLIC ACID TABLET (FP) PO SCH (09:53)
[2018-07-20] MEDS: DULoxetine HCL 20 MG CAPSULE.DR (FP) PO SCH (09:53)
[2018-07-20] MEDS: NAPROXEN 500 MG TABLET (FP) PO SCH (09:53)
[2018-07-20] MEDS: cloNIDine HCL 0.1 MG TABLET PO PRN ×2 (09:57→21:46)
[2018-07-20] MEDS: hydrOXYzine PAMOATE 50 MG CAPSULE (FP) PO PRN ×2 (09:58→21:47)
[2018-07-20] MEDS: THIAMINE HCL 100 MG TABLET (FP) PO SCH (21:47)
[2018-07-20] MEDS: QUEtiapine FUMARATE 100 MG TABLET (FP) PO SCH (21:47)
[2018-07-20] MEDS: SUVOREXANT 10 MG TABLET PO PRN (21:48)
[2018-07-20] MEDS: LIDOCAINE PATCH REMOVAL MC SCH (21:49)
[2018-07-21] MEDS ORDERED: LEVOTHYROXINE NA 25 MCG TABLET (FP) ONE (05:36)
[2018-07-21] MEDS ORDERED: LEVOTHYROXINE NA 100 MCG TABLET (FP) ONE (05:37)
[2018-07-21] MEDS: LEVOTHYROXINE 100 MCG, LEVOTHYROXINE 75 MCG PO SCH (06:23)
[2018-07-21] MEDS: GABAPENTIN 400 MG CAPSULE (FP) PO SCH ×3 (06:25→21:08)
[2018-07-21] MEDS: AMITRIPTYLINE HCL 25 MG TABLET (FP) PO SCH ×3 (06:26→21:08)
[2018-07-21] MEDS: BACLOFEN 10 MG TABLET (FP) PO PRN ×2 (06:26→21:10)
[2018-07-21] MEDS: NICOTINE 21 MG/24 HOURS TOPICAL PATCH TD SCH (10:01)
[2018-07-21] MEDS: LIDOCAINE 5% TOPICAL PATCH TP SCH (10:01)
[2018-07-21] MEDS: DULoxetine HCL 20 MG CAPSULE.DR (FP) PO SCH (10:01)
[2018-07-21] MEDS: hydrOXYzine PAMOATE 50 MG CAPSULE (FP) PO PRN ×2 (10:02→21:09)
[2018-07-21] MEDS: cloNIDine HCL 0.1 MG TABLET PO PRN (10:02)
[2018-07-21] MEDS: PRENATAL VITAMINS W/ FOLIC ACID TABLET (FP) PO SCH (10:04)
--- NOTE | 2018-07-21 15:51 | PN ---
[facility]erie Progress Note Note: PT WANTS TO CONTACT HER MOTHER IN [place] AND TO GET HER [facility] NUMBER STATING SHE IS NOT GETING HER RIGHT DOSE OF "1.75MCG". WHEN ASKED PT WAS CONSISTENT WITH MEDICATION HISTORY. DISCUSSED PT'S CONCERN WITH DR. DICKEY WHO WILL SPEAK TO PATIENT AGAIN TODAY. Vital Signs 07/21/18 10:00 Pulse Rate 87 Blood Pressure 105/71 WILL REPEAT THYROID TEST IN A.M. MEANWHILE D/C SYNTHROID 175 MCG AND RE-EVALUATE AFTER RESULT.
--- NOTE | 2018-07-21 17:31 | PN ---
[facility] Progress Note Note: DR. DICKEY AND I SAW PATIENT THIS EVENING TO REVIEW HER SYNTHROID DOSE. PT NOW REPORT TO BOTH PROVIDERS SHE HAD NOT TAKEN HER MEDICATION FOR ABOUT OVER ONE YEAR( PLEASE SEE NOTES OF 07/12/18 AND 07/13/18). PT NOW REPORTS PREVIOUS DOSED OF 1.75 MCG AND 0.75 MCG AT DIFFERENT TIMES AND STATING HER MEDICATION NEEDED TO BE ADJUSTED. PT WAS INFORMED THE CURRENT DOSE OF 175 MCG WILL BE DISCONTINUED AND REPEAT BLOOD WORK WAS ORDERED IN THE MORNING. PT WAS ALSO OFFERED TO BE TAKEN TO [facility] ER FOR THE THYROID FUNCTION TEST TODAY INSTEAD OF TOMORROW. PT DECLINED TO GO TO THE ER AND STATES SHE IS FINE WAITING FOR THE BLOOD TO BE DRAWN IN THE MORNING. DENIES CHEST PAIN, DIZZINESS OR SOB. ALERT O X 3. Vital Signs - 24 hr 07/20/18 07/21/18 07/21/18 21:20 00:30 03:30 Temperature Pulse Rate 94 H Respiratory 16 16 Rate Blood Pressure 107/74 07/21/18 07/21/18 07:03 10:00 Temperature 97.1 F L Pulse Rate 76 87 Respiratory 18 Rate Blood Pressure 111/76 105/71 PLAN:TSH;T4 AND T3 UPTAKE IN A.M EKG-ROUTINE F/U WITH RESULT IN TOMORROW.
--- NOTE | 2018-07-21 20:04 | PN ---
[facility] Progress Note Note: patient seen w/ RIGHT [employer] C[employer]TER Magali pt reports she latest took thyroid medications > 1 year ago , non- compliant w/ f/up 2/2 substance use . Currently reports feeling anxious, tremulous , agitated. D/w pt at length , declined transfer to hospital, states prefers to await tomorrow morning 's blood work as ordered for TSH level .Pt requesting re- evaluation of psychiatric medications as well . Pt expressed agreement w/ POC . Vital Signs (72 hours) 07/18/18 07/19/18 07/19/18 21:05 00:30 03:30 Temperature Pulse Rate 73 Respiratory 17 16 Rate Blood Pressure 108/71 07/19/18 07/19/18 07/20/18 07:37 10:02 00:30 Temperature 97.3 F L Pulse Rate 62 109 H Respiratory 18 18 Rate Blood Pressure 99/64 110/67 07/20/18 07/20/18 07/20/18 03:30 07:23 09:57 Temperature 97.7 F Pulse Rate 79 78 Respiratory 16 18 Rate Blood Pressure 101/70 102/70 07/20/18 07/21/18 07/21/18 21:20 00:30 03:30 Temperature Pulse Rate 94 H Respiratory 16 16 Rate Blood Pressure 107/74 07/21/18 07/21/18 07/21/18 07:03 10:00 18:00 Temperature 97.1 F L 97.9 F Pulse Rate 76 87 103 H Respiratory 18 18 Rate Blood Pressure 111/76 105/71 119/87
[2018-07-21] MEDS: QUEtiapine FUMARATE 100 MG TABLET (FP) PO SCH (21:08)
[2018-07-21] MEDS: THIAMINE HCL 100 MG TABLET (FP) PO SCH (21:08)
[2018-07-21] MEDS: LIDOCAINE PATCH REMOVAL MC SCH (21:08)
[2018-07-21] MEDS: VITAMINS A AND D TOPICAL OINTMENT 60 GM TUBE TP SCH ×2 (21:12→23:52)
[2018-07-21] MEDS ORDERED: METHYL SALICYLATE/MENTHOL OINT 30 GM TUBE TP SCH (22:00)
[2018-07-22] MEDS: AMITRIPTYLINE HCL 25 MG TABLET (FP) PO SCH ×2 (06:28→14:36)
[2018-07-22] MEDS: GABAPENTIN 400 MG CAPSULE (FP) PO SCH ×2 (06:28→14:36)
[2018-07-22 06:53] VITALS: TEMP 97.7
[2018-07-22] MEDS: ACETAMINOPHEN 325 MG TABLET (FP) PO PRN (07:27)
[2018-07-22] MEDS: cloNIDine HCL 0.1 MG TABLET PO PRN (08:58)
[2018-07-22] MEDS: DULoxetine HCL 20 MG CAPSULE.DR (FP) PO SCH (09:53)
[2018-07-22] MEDS: PRENATAL VITAMINS W/ FOLIC ACID TABLET (FP) PO SCH (09:53)
[2018-07-22] MEDS: LIDOCAINE 5% TOPICAL PATCH TP SCH (09:54)
[2018-07-22] MEDS: NICOTINE 21 MG/24 HOURS TOPICAL PATCH TD SCH (09:54)
[2018-07-22] MEDS: hydrOXYzine PAMOATE 50 MG CAPSULE (FP) PO PRN (09:55)
[2018-07-22] MEDS ORDERED: VITAMINS A AND D TOPICAL OINTMENT 60 GM TUBE TP SCH (10:00)
--- NOTE | 2018-07-22 10:14 | EKG ---
Test Reason : Blood Pressure : / mmHG Vent. Rate : 078 BPM Atrial Rate : 078 BPM P-R Int : 168 ms QRS Dur : 082 ms QT Int : 376 ms P-R-T Axes : 061 061 049 degrees QTc Int : 428 ms NORMAL SINUS RHYTHM NORMAL ECG WHEN COMPARED WITH ECG OF 17-JUL-2018 09:45, NO SIGNIFICANT CHANGE WAS FOUND Confirmed by JOELLE POLLOCK MD ([id number]) on 07/22/2018 10:14:01 AM Referred By: Confirmed By:JOELLE POLLOCK MD
--- NOTE | 2018-07-22 10:14 | EKG ---
Test Reason : Blood Pressure : / mmHG Vent. Rate : 059 BPM Atrial Rate : 059 BPM P-R Int : 194 ms QRS Dur : 086 ms QT Int : 462 ms P-R-T Axes : 030 052 043 degrees QTc Int : 457 ms SINUS BRADYCARDIA WHEN COMPARED WITH ECG OF 07-JUL-2018 19:28, NO SIGNIFICANT CHANGE WAS FOUND Confirmed by JOELLE POLLOCK MD ([id number]) on 07/22/2018 10:14:27 AM Referred By: Confirmed By:JOELLE POLLOCK MD
[2018-07-22 11:26] VITALS: BP 119/85; PULSE 93
--- NOTE | 2018-07-22 13:49 | PN ---
[facility] Progress Note Note: PT WAS SEEN WITH DR. DICKEY TODAY TO REVIEW REPEAT TFT(SEE RESULT BELOW). DR. DICKEY EXPLAINED TO PT THE MEDICATION WILL NOT BE REORDERED AND REPEAT TEST WILL BE DONE ON 07/27/18 AND THEN RE-EVALUATED. PT DECLINED PLAN OF CARE AND SAYS SHE IS LEAVING TODAY OR TOMORROW TO ANOTHER PROGRAM. BOTH PROVIDERS DISCOURAGED MS WASHINTGON FROM HER DECISION BUT SHE INSISTS SHE WILL BE LEAVING. PT'S CASE AND PLAN DISCUSSED WITH FLASK CLEANER, MS CANDELARIA PAREDES FOR FOLLOW UP. Vital Signs (72 hours) 07/20/18 07/20/18 07/20/18 00:30 03:30 07:23 Temperature 97.7 F Pulse Rate 79 Respiratory 18 16 18 Rate Blood Pressure 101/70 07/20/18 07/20/18 07/21/18 09:57 21:20 00:30 Temperature Pulse Rate 78 94 H Respiratory 16 Rate Blood Pressure 102/70 107/74 07/21/18 07/21/18 07/21/18 03:30 07:03 10:00 Temperature 97.1 F L Pulse Rate 76 87 Respiratory 16 18 Rate Blood Pressure 111/76 105/71 07/21/18 07/22/18 07/22/18 18:00 00:30 03:30 Temperature 97.9 F Pulse Rate 103 H Respiratory 18 18 18 Rate Blood Pressure 119/87 07/22/18 07/22/18 07/22/18 06:51 08:55 11:25 Temperature 97.7 F Pulse Rate 84 111 H 93 H Respiratory 18 Rate Blood Pressure 117/82 142/85 119/85 Laboratory Tests 07/13/18 07/13/18 07/22/18 09:00 09:00 08:00 TSH Cancelled 0.11 L Free T4 Cancelled 1.48 H Resin T3 Uptake Cancelled 34.3 TFT OF 07/12/18: TSH =5.46(H) FREE T4 = 1.01 RESIN T3 UPTAKE=31.9 EKG ON 07/21/18-NSR NORMAL EKG ABOVE ECG CONSISTENT AND UNCHANGED WITH PREVIOUS ECGs OF 07/07/18 AND 07/17/18. PLAN:STAFF TO CONTINUE TO ENCOURAGE PATIENT TO STAY IN TREATMENT REPEAT TSH,T4 AND T3 ORDERED ON 07/26/18 INSTEAD. PSYCH RE-EVALUATION TODAY FOR INSOMNIA WORK UP ORDERED. INCREASE PO FLUIDS. ADDENDUM:BLOOD WORK ORDER WAS CANCELLED BY THE LAB FOR 07/13/18 BECAUSE LAB WAS ALREADY ORDERED FROM DETOX BEFORE PT WAS REFERRED SAME DAY TO REHAB(SEE LABORATORY ON DETOX ADMISSION).
--- NOTE | 2018-07-22 19:01 | PN ---
Psychiatric Progress Note Vital Signs: Vital Signs Period Temp Pulse Resp BP Sys/[place] Pulse Ox Last 24 Hr 97.7 F 84-123 18-18 117-142/82-87 Date of Session: 07/22/18 Chief Complaint:: " I need my medications adjusted. i'm taking to many sedatives. HPI: Patient complaining of insomnia and requesting her medications be lowered. ROS: Hypothyroidism, herniated discs and bronchial asthma Current Medications: Active Medications Generic Name Dose Route Start Last Admin Trade Name Freq PRN Reason Stop Dose Admin Acetaminophen 650 mg 07/12/18 14:32 07/22/18 07:27 Tylenol - PO 650 mg Q4H PRN Administration FEVER Al Hydroxide/Mg Hydroxide 30 ml 07/12/18 14:32 Mylanta Oral Suspension - PO Q6H PRN DYSPEPSIA Amitriptyline HCl 25 mg 07/18/18 15:30 07/22/18 14:36 Elavil - PO 25 mg TID JANINE Administration Baclofen 10 mg 07/13/18 12:22 07/21/18 21:10 Lioresal - PO 10 mg TID PRN Administration MUSCLE SPASMS Clonidine 0.1 mg 07/14/18 13:11 07/22/18 08:58 Catapres - PO 0.1 mg BID PRN Administration WITHDRAWAL(CONT SUBST) Duloxetine HCl 20 mg 07/13/18 12:15 07/22/18 09:53 Cymbalta - PO 20 mg DAILY JANINE Administration Eucalyptus/Menthol/Phenol/Sorbitol 1 each 07/12/18 14:32 Cepastat Lozenge - MM Q4H PRN SORE THROAT Gabapentin 800 mg 07/14/18 22:00 07/22/18 14:36 Neurontin - PO 800 mg TID JANINE Administration Guaifenesin 10 ml 07/12/18 14:32 Robitussin Dm - PO Q6H PRN COUGH Hydroxyzine Pamoate 50 mg 07/12/18 17:07 07/22/18 09:55 Vistaril - PO 50 mg Q6H PRN Administration AGITATION Lidocaine 1 patch 07/13/18 13:45 07/22/18 09:54 Lidoderm Patch - TP 1 patch DAILY JANINE Administration Loperamide HCl 4 mg 07/12/18 14:32 Imodium - PO Q6H PRN DIARRHEA Magnesium Citrate 300 ml 07/12/18 14:32 07/14/18 08:57 Citroma - PO 300 ml Q48H PRN Administration CONSTIPATION Magnesium Hydroxide 30 ml 07/12/18 14:32 07/16/18 10:38 Milk Of Magnesia - PO 30 ml DAILY PRN Administration CONSTIPATION Melatonin 5 mg 07/12/18 22:00 Melatonin PO HS PRN INSOMNIA Methyl Salicylate 1 applic 07/21/18 22:00 07/21/18 21:12 Yousuf-Alwler - TP 1 applic HS JANINE Administration Miscellaneous 1 each 07/13/18 22:00 07/21/18 21:08 Lidoderm Patch Removal MC 1 each DAILY@2200 JANINE Administration Nicotine 21 mg 07/14/18 14:00 07/22/18 09:54 Nicoderm Patch - TD 21 mg DAILY JANINE Administration Nicotine Polacrilex 4 mg 07/14/18 11:58 07/14/18 13:08 Nicorette Gum - BUC 4 mg Q2H PRN Administration NICOTINE REPLACEMENT RX Multivit/Folic Acid/Iron 1 tab 07/13/18 10:00 07/22/18 09:53 Vitamins (Sjr) - PO 1 tab DAILY JNAINE Administration Pseudoephedrine/Triprolidine 1 combo 07/12/18 14:32 Actifed - PO TID PRN NASAL CONGESTION Quetiapine Fumarate 200 mg 07/18/18 15:18 07/21/18 21:08 Seroquel - PO 200 mg HS JANINE Administration Thiamine HCl 100 mg 07/12/18 22:00 07/21/18 21:08 Vitamin B1 - PO 100 mg HS JANINE Administration Vitamin A/Vitamin D 1 applic 07/22/18 10:00 07/22/18 11:00 Vitamin A & D Top Oint - TP 1 applic BID JANINE Administration Medication(s) Change(s): Yes. Will d/c elavil 25mg TID and Seroquel 200mg. Will order elavil 25mg @13:00 and seroquel 100mg Current Side Effect: No Lab tests ordered: No Lab tests reviewed: Yes Provider note:: Patient complaining of insomnia and anxiety secondary to her thyroid imbalance. . Dr. Pozo, Dr. Barrera, and Dr. Cowan notes read and appreciated. Patient states that she feels uncomfortable with all the sedative' s she is prescribed. She reports being off psychotropic medications for over six months before admission to detox on 07/12/18.Medications reviewed with patient. Patient reports "cotton mouth" from accepting seroquel and is requesting seroquel be lowered. Patient is also receiving gabapentin 800mg TID + elavil 25mg TID + Vistaril 50mg q6h for anxiety and would like medications be titrated or d/c. At present, patient presents as anxious which can be possibly due to her thyroid disorder which is being address by the medical team. Recommendation: 1) Lower seroquel 200mg to 100mg 2) D/C elavil 25mg TID and order elavil @ 13:00 for anxiety 3)Belsomra 10mg qhs prn for insomnia Total face to face time:: 25 Mental Status Exam - Mental Status Exam Alert and Oriented to: Time, Place, Person Cognitive Function: Good Patient Appearance: Well Groomed Mood: Anxious Affect: Mood Congruent Patient Behavior: Cooperative Speech Pattern: Appropriate Voice Loudness: Normal Thought Process: Intact, Goal Oriented Thought Disorder: Not Present Hallucinations: Denies Suicidal Ideation: Denies Homicidal Ideation: Denies Insight/Judgement: Poor Sleep: Poorly Appetite: Fair Muscle strength/Tone: Normal Gait/Station: Normal Psychiatric Treatment Plan - Problem List (1) Alcohol dependence Current Visit: Yes (2) Cocaine dependence Current Visit: Yes (3) Substance induced mood disorder Current Visit: Yes Comment: . (4) Substance-induced sleep disorder Current Visit: Yes Comment: . (5) Sedative hypnotic or anxiolytic dependence Current Visit: Yes
--- NOTE | 2018-07-22 19:11 | PN ---
[facility] Progress Note Note: met w/ patient earlier today at the request of pt and [employer] APPRAISER Magali who wishes to discuss lab results with principal technical writer present . Pt requested copy of results . Discussed repeating lab work early next week , patient declined. Pt anxious, agitated about dose of levothyroxine , stated that she was previously on 1.75 mg , left office abruptly and declined further interaction with this principal technical writer , stated will speak with counselor. Pt was observed ambulating freely in the hallway . Vital Signs Period Temp Pulse Resp BP Sys/[place] Pulse Ox Last 24 Hr 97.7 F 84-123 18-18 117-142/82-87 Laboratory Last Values Vital Signs - 24 hr 07/22/18 07/22/18 07/22/18 00:30 03:30 06:51 Temperature 97.7 F Pulse Rate 84 Respiratory 18 18 18 Rate Blood Pressure 117/82 07/22/18 07/22/18 08:55 11:25 Temperature Pulse Rate 111 H 93 H Respiratory Rate Blood Pressure 142/85 119/85 TSH 0.11 uIU/ml (0.358-3.74) L 07/22/18 08:00 Free T4 1.48 ng/dl (0.76-1.46) H 07/22/18 08:00 Resin T3 Uptake 34.3 % (30-39) 07/22/18 08:00
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
[2018-07-22] MEDS ORDERED: SUVOREXANT 10 MG TABLET PO PRN (22:00)
[2018-07-22] MEDS ORDERED: QUEtiapine FUMARATE 100 MG TABLET (FP) PO SCH (22:00)
[2018-07-23] MEDS ORDERED: AMITRIPTYLINE HCL 25 MG TABLET (FP) PO SCH (13:00)
== END 2018-07-22 20:20 | disposition home or self-care (01) | DRG 772 ==
LOC: YASAS 13:28 → Y3E 13:29
PROVIDERS: ADMIT Neuromusculoskeletal Medicine & OMM; ATTEND Neuromusculoskeletal Medicine & OMM
PROC: HZ42ZZZ Group Counseling for Substance Abuse Treatment, Cognitive-Behavioral (ICD-10-PCS; principal; 2018-07-12)
DX: F11.20 Opioid dependence, uncomplicated (principal); F10.20 Alcohol dependence, uncomplicated; F13.20 Sedative, hypnotic or anxiolytic dependence, uncomplicated; F14.20 Cocaine dependence, uncomplicated; F19.24 Other psychoactive substance dependence with psychoactive substance-induced mood disorder; F19.282 Other psychoactive substance dependence with psychoactive substance-induced sleep disorder; F60.3 Borderline personality disorder; J45.909 Unspecified asthma, uncomplicated; E03.9 Hypothyroidism, unspecified; M54.5 Low back pain; G89.29 Other chronic pain; K59.00 Constipation, unspecified
CPT/HCPCS: 36415; 84439; 84443; 84479; 93005; 93010; J0475; J0735